=== PATIENT | female | born 1990 | race Caucasian/White ===

== ENCOUNTER 2023-04-17 19:43 | Outpatient (REF) | payer OTHER, SELFPAY ==
[2023-04-23 18:07] LABS: Age Gdln ACOG Testing Note (.); HPV Aptima Negative (Negative); IGP, Aptima HPV, rfx 16/18,45 Note (.)
== END 2023-04-17 19:44 | disposition home or self-care (01) ==
LOC: LAB 19:43
PROVIDERS: Visit Provider Obstetrics & Gynecology
DX: Z01.419 Encounter for gynecological examination (general) (routine) without abnormal findings (principal)
CPT/HCPCS: 87624; G0145

== ENCOUNTER 2024-05-05 19:30 | Outpatient (REF) | payer OTHER, SELFPAY ==
--- OUTSIDE RECORDS SUMMARY | 2024-05-05 19:35 | XMS_ITS | CCD ---
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 Name Role Phone Lindsey Law Primary Care Physician Skylar Mcclain Unavailable Unavailable REQUEST, NONE LISTED Primary Care UnavailSAVANNA Clark Admitting Unavailable SAVANNA SMART Attending Unavailable SAVANNA SMART Consulting Unavailable RENATA, DR HIDALGO Admitting Unavailable RENATA, DR HIDALGO Attending Unavailable REQUEST, NONE LISTED Primary Care Unavailjaja YANEZ, DR HIDALGO Consulting Unavailable Violette Rucker Unavailable ROCKY YANEZ Attending Unavailable ROCKY YANEZ Attending Unavailable KERMIT BECKHAM Attending Unavailable KERMIT BECKHAM Attending Unavailable KERMIT BECKHAM Attending Unavailable Terrell Deshpande Attending Unavaila Marielena Clay Attending Unavailable Marielena Archer Attending Unavailable Lindsey Law MD Primary Care Provider Allergies Allergy Classification Reported Allergen(s) Allergy Type Date of Onset Reaction(s) Facility (7 sources) acetaminophen / propoxyphene; Translations: [acetaminophen-pro poxyphene] Drug Allergy stomach upset [facility] (10 sources) Azithromycin; Translations: [azithromycin] Drug Allergy 04-17-20 23 anaphylaxis [facility] (7 sources) Contrast media; Translations: [red dye] Drug allergy 02-01-20 15 [facility] (7 sources) Oseltamivir; Translations: [oseltamivir] Drug Allergy Swelling (morphologic abnormality), swelling [facility] (4 sources) Contrast media; Translations: [contrast media (iodine-based)] Allergy to substance 01-31-20 15 Unknown [facility] (1 source) acetohydroxamic acid Drug Allergy [facility] Rep[facility] (1 source) Azithromycin Drug Allergy 11-09-19 03 [facility] (1 source) Darvocet-N 100 Drug allergy (disorder) 11-09-19 05 [facility] (1 source) Dye HALF-WAY Red 40 (Allura Red) Drug allergy stomach upset [facility] Other (3 sources) Oseltamivir Drug Allergy 06-09-19 20 Swelling [facility] Healthcare (3 sources) Propoxyphene Drug Allergy 04-17-20 23 [facility] [employer] Work Phone: (3 sources) Red Dye #40 (Allura Red) Propensity to adverse reactions 02-01-20 15 [facility] Healthcare Medications Current Medications Medication Drug Class(es) Dates Sig (Normalized) Sig (Original) [id number] 200 actuat albuterol 0.09 mg/actuat metered dose inhaler (5 sources) beta2-Adrenergic Agonist Start: 10-05-2010 ProAir HFA 90 mcg/inh inhalation aerosol 2 puff(s), Inhalation, as needed, Asthma Start Date: 10/05/10 Status: Ordered take 2 puff(s) by in halation every six hours albuterol HFA 90 mcg/act inhaler Inhale 2 puffs every 6 (six) hours if needed. Active take 2 puff(s) by in halation every six hours as needed Albuterol Sulfate HFA 108 (90 Base) MCG/ACT 2 puffs as needed Inhalation every 6 hrs prn Active Apri oral tablet (2 sources) Start: 02-15-2021 take 1 tablet by mouth once daily Apri oral tablet tab(s), Oral, Daily, Refill(s) 0 Start Date: 02/15/21 Status: Ordered 12 hr buPROPion hydrochloride 150 mg extended release oral tablet (3 sources) Aminoketone Start: 04-14-2023 take 1 tablet by mouth every twelve hours in the morning buPROPion SR (Wellbutrin SR) 150 MG 12 hr tablet Take 150 mg by mouth in the morning and 150 mg before bedtime. 04/14/2023 Active cephalexin 500 mg oral capsule (1 source) Cephalosporin Antibacterial Start: 12-29-2022 take 1 capsule by mouth every eight hours Cephalexin 500 MG 1 capsule Orally every 8 hrs for 7 Dec, Active {21 (Desogestrel 0.15 MG / Ethinyl Estradiol 0.03 MG Oral Tablet) / (Inert Ingredients 1 MG Oral Tablet) } Pack [Apri 28 Day] (4 sources) Progestin, Estrogen Start: 02-15-2021 take 1 tablet by mouth once daily Apri oral tablet tab(s), Oral, Daily, Refill(s) 0 Start Date: 02/15/21 Status: Ordered take 1 tablet by [facility] every twenty-four hours Apri 0.15-30 MG-MCG 1 tablet Orally Once a day Not-Taking Prozac (1 source) Serotonin Reuptake Inhibitor Start: 05-20-2023 Prozac Oral, Daily, Refills(s) 0 Start Date: 05/20/23 Status: Ordered ibuprofen 800 mg oral tablet (9 sources) Nonsteroidal Anti-inflammatory Drug Start: 09-18-2022 take 1 tablet by mouth three times daily as needed ibuprofen 800 MG tablet Take 800 mg by mouth 3 (three) times a day as needed. 09/18/2022 Active Start: 02-21-2018 ibuprofen PRN as needed for pain, Refills(s) 0 Start Date: 02/21/18 Status: Ordered Lamictal (9 sources) Mood Stabilizer, Anti-epileptic Agent Start: 02-15-2021 Lamictal Oral, BID, Refills(s) 0, Psychosis Start Date: 02/15/21 Status: Ordered take 1 tablet by mouth in the mo rning lamoTRIgine (LaMICtal) 100 MG tablet Take 1 tablet by mouth in the morning and 1 tablet before bedtime. Active take 2 tablets by mo [facility] every twenty-four hours LaMICtal 25 MG 2 tablet Orally Once a da y Active linaclotide 0.145 mg oral capsule (9 sources) Guanylate Cyclase-C Agonist Start: 05-20-2023 End: 11-16-2023 take 1 capsule by mouth once daily Linzess 145 mcg oral capsule 145 mcg = 1 cap(s), Oral, Daily, X 90 day(s), # 90 cap(s), Refills(s) 1, Pharmacy: [facility]/pharmacy #[id number], 165, cm, 05/20/23 9:14:00 EST, Height/Length Dosing, 63.3, kg, 05/20/23 9:14:00 EST, Weight Dosing Start Date: 05/20/23 Stop Date: 11/16/23 Status: Ordered Start: 08-27-2022 End: 02-23-2023 take 1 capsule by mouth once daily Linzess 290 mcg oral capsule 290 mcg = 1 cap(s), Oral, Daily, X 90 day(s), # 90 cap(s), Refills(s) 1, Pharmacy: [facility]/pharmacy #[id number], 165, cm, 08/27/22 14:33:00 EDT, Height/Length Dosing, 63.4, kg, 08/27/22 14:33:00 EDT, Weight Dosing Start Date: 08/27/22 Stop Date: 02/23/23 Status: Ordered Start: 08-29-2021 End: 08-25-2022 take 1 capsule by mouth once daily Linzess 145 mcg oral capsule 145 mcg = 1 cap(s), Oral, Daily, X 90 day(s), # 90 cap(s), Refills(s) 1, Pharmacy: [facility]/pharmacy #[id number], 165, cm, 02/26/22 14:06:00 EST, Height/Length Dosing, 61.6, kg, 02/26/22 14:06:00 EST, Weight Dosing Start Date: 02/26/22 Stop Date: 08/25/22 Status: Ordered Start: 02-15-2021 End: 08-05-2021 take 1 capsule by mouth once daily Linzess 145 mcg oral capsule 145 mcg = 1 cap(s), Oral, Daily, X 30 day(s), # 30 cap(s), Refills(s) 0, Pharmacy: [facility]/pharmacy #[id number], 165.1, cm, 05/09/21 10:49:00 EST, Height/Length Dosing, 59.4, kg, 05/09/21 10:49:00 EST, Weight Dosing Start Date: 07/06/21 Stop Date: 08/05/21 Status: Ordered take 1 capsule by [facility] before mealtime linaCLOtide (Linzess) 72 MCG capsule Take 72 mcg by mouth in the morning. Take before meals. Do not crush or chew.. Active MiraLax oral powder for reconstitution (2 sources) Start: 01-01-2021 MiraLax oral p owder for reconstitution 17 gram, Oral, Daily Constipation, 255 gm, Refill(s) 0, dissolve in water before taking, [facility]/pharmacy #[id number], 165.1, cm, 01/01/21 11:05:00 EDT, Height/Length Dosing, 60, kg, 01/01/21 11:05:00 EDT, Weight Dosing Start Date: 01/01/21 Status: Ordered Prilosec (6 sources) Proton Pump Inhibitor Start: 02-21-2018 Prilosec Oral, Daily , Refills(s) 0, Control of stomach acid Start Date: 02/21/18 Status: Ordered take 1 capsule by [facility] every twenty-four hours Omeprazole 40 MG 1 capsule Orally Once a day Active polyethylene glycol 3350 68271 mg powder for oral solution (3 sources) Osmotic Laxative Start: 01-01-2021 MiraLax oral powder for reconstitution 17 gram, Oral, Daily Constipation, 255 gm, Refill(s) 0, dissolve in water before taking, [facility]/pharmacy #[id number], 165.1, cm, 01/01/21 11:05:00 EDT, Height/Length Dosing, 60, kg, 01/01/21 11:05:00 EDT, Weight Dosing Start Date: 01/01/21 Status: Ordered ProAir HFA 90 mcg/inh inhalation aerosol (4 sources) Start: 10-05-2010 ProAir HFA 90 mcg/inh inhalation aerosol 2 puff(s), Inhalation, as needed, Asthma Start Date: 10/05/10 Status: Ordered topiramate 200 mg oral tablet (2 sources) Start: 05-04-2024 take 1 tablet by mouth once daily topiramate (Topamax) 200 MG tablet Take 200 mg by mouth Daily 05/04/2024 Active Tramadol (9 sources) Opioid Agonist Start: 02-21-2018 tramadol Oral, PRN as needed for pain, Refills(s) 0 Start Date: 02/21/18 Status: Ordered take 2 tablets by mo uth three times daily as needed traMADol (Ultram) 50 MG tablet TAKE 2 TABLETS BY MOUTH 3 TIMES A DAY NEEDED Active take 1 tablet by joe th three times daily as needed traMADol HCl 50 MG 1 tablet as needed Orally three times daily Active ziprasidone 40 mg oral capsule (9 sources) Atypical Antipsychotic Start: 01-13-2023 take 1 capsule by mouth in the morning ziprasidone (Geodon) 40 MG capsule Take 40 mg by mouth in the morning and 40 mg before bedtime. 01/13/2023 Active Start: 02-15-2021 Geodon Refills (s) 0, Psychosis Start Date: 02/15/21 Status: Ordered Geodon Active Zofran ODT 4 mg Tab-Dis (5 sources) Start: 02-21-2018 take 1 tablet by mouth every six hours Zofran ODT 4 mg Tab-Dis 4 mg = 1 tab(s), Oral, q6hr, # 10 tab(s), Refills(s) 0 Start Date: 02/21/18 Status: Ordered Completed/Discontinued Medications Medication Drug Class(es) Dates Sig (Normalized) Sig (Original) SZSTANDARD1-Topical Cream Baclofen 2%, Cyclobenzaprine HCL 2%, Diclofenac Na 3%, Gabapentin 6%, Lidocaine HCL 2% Cream (1 source) Start: 08-11-2018 SZSTANDARD1-Topical Cream Baclofen 2%, Cyclobenzaprine HCL 2%, Diclofenac Na 3%, Gabapentin 6%, Lidocaine HCL 2% Cream NEEDED TOPICALLY APPLY 1-2 GRAMS FOR 2-3 MINUTES EVERY 6-8 HOURS for 30 days Jul, Not-Taking Problems Active Problems Problem Classification Problem Date Documented Da te Episodic/Chronic Asthma (6 sources) Asthma; Translations: [Unspecified asthma, uncomplicated] Onset: 2 07-03-2013 Chronic Endometriosis (5 sources) Endometriosis (clinical) 08-31-2017 Chronic Gastrointestinal hemorrhage (1 source) Gastrointestinal hemorrhage 03-11-2023 Episodic Headache; including migraine (4 sources) Migraine, unspecified, not intractable, without status migrainosus; Translations: [MIGRAINE UNS NOT INTRACT W/O SM] Onset: 2 Chronic Hemorrhoids (7 sources) Hemorrhoids; Translations: [Unspecified hemorrhoids] Onset: 2 04-26-2021 Episodic Immunizations and screening for infectious disease (1 source) Encounter for screening for human papillomavirus (HPV); Translations: [ENC SCREENING HUMAN PAPILLOMAVIRUS] Onset: 2 Episodic Mood disorders (11 sources) Bipolar II disorder; Translations: [Depressive disorder] Onset: 2 07-03-2013 Chronic Other acquired deformities (1 source) Acquired spondylolisthesis; Translations: [Spondylolisthesis, site unspecified] Episodic Other aftercare (1 source) Other termite renewal inspector (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; Translations: [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 CURRENT DRUG THERAPY] Onset: 2 Episodic Other female genital disorders (5 sources) Dysplasia of cervix 07-26-2015 Episodic Other gastrointestinal disorders (8 sources) Chronic idiopathic constipation; Translations: [Chronic idiopathic constipation] Onset: 2 Chronic Other gastrointestinal disorders (1 source) Chronic constipation 04-26-2021 Episodic Other gastrointestinal disorders (1 source) Swollen abdomen; Translations: [Abdominal distension (gaseous)] Onset: 3 Episodic Other gastrointestinal disorders (2 sources) Abdominal bloating 08-27-2022 Episodic Other nervous system disorders (1 source) Sciatic nerve lesion; Translations: [Lesion of sciatic nerve, right lower limb] Chronic Other nervous system disorders (1 source) Chronic pain; Translations: [Other chronic pain] Chronic Other nervous system disorders (1 source) Mononeuropathy of lower limb; Translations: [Unspecified mononeuropathy of right lower limb] Chronic Other non-traumatic joint disorders (1 source) Arthropathy of lumbar facet joint; Translations: [Other specific arthropathies, not elsewhere classified, other specified site] Chronic Other non-traumatic joint disorders (1 source) Hip pain; Translations: [Pain in unspecified hip] Episodic Other screening for suspected conditions (not mental disorders or infectious disease) (4 sources) Encounter for screening for malignant neoplasm of cervix; Translations: [ENC SCREENING MALIG NEOPLASM CERV] Onset: 2 Episodic Screening and history of mental health and substance abuse codes (1 source) Personal history of nicotine dependence; Translations: [PERSONAL HISTORY OF NICOTINE DEPEND] Onset: 2 Episodic Skin and subcutaneous tissue infections (1 source) Cellulitis of left toe Episodic Spondylosis; intervertebral disc disorders; other back problems (8 sources) Degeneration of intervertebral disc; Translations: [Solitary sacroiliitis] 10-08-2013 Chronic Spondylosis; intervertebral disc disorders; other back problems (3 sources) Neck pain; Translations: [Cervicalgia] Episodic Substance-related disorders (5 sources) Smoker 05-06-2016 Chronic Comment on above: Added secondary to d ocumentation in Social History. Past or Other Problems Problem Classification Problem Date Documented Da te Episodic/Chronic Headache; including migraine (5 sources) Headache Onset: 05-08-2013 07-03-2013 Episodic Results Test Name Value Interpretation Reference Range Facility Ambulatory Visit Summaryon 0 05-20-2023 Ambulatory Visit Summary ALISSON SALEHNORA Tilley :1990 Visit Date:05/20/2023 Ambulatory Visit Instructions Your Diagnosis Chronic idiopathic constipation Your Care Team Attending Physician - Marielena Archer CNP Primary Care Physician - Lindsey Law MD This Is Your Medications List linaclotide (Linzess 145 mcg oral capsule) Contact prescribing physician if questions or concerns albuterol (ProAir HFA 90 mcg/inh inhalation aerosol) desogestrel-ethinyl estradiol (Apri oral tablet) fluoxetine (Prozac) ibuprofen lamotrigine (Lamictal) omeprazole (Prilosec) ondansetron (Zofran ODT 4 mg Tab-Dis) polyethylene glycol 3350 (MiraLax oral powder for reconstitution) tramadol ziprasidone (Geodon) Procedures Performed Abdominal hysterectomy (04/10/2021), Colonoscopy (03/15/2021), back injections, hernia, LEAP, None, Tubal ligation. Discharge Vitals Temperature (Temporal Artery) 36.3 ?C Heart Rate (Peripheral) 87 Respiratory Rate 16 Blood Pressure 128/88 Height 65 in Height 165 cm Weight 139.26 lb Weight 63.3 kg BMI 23.25 What to do next Scheduled Follow-Up Appointments Saturday 9:00 AM EST With: Marielena Archer CNP Where: [facility] Normal [facility] Gastroenterology Office/Clin ic Noteon 05-20-2023 Gastroenterology Office/Clinic Note Chief Complaint Check up HPI Staff This is a 32 year old female who presents today for a follow-up from 03/11/23 office visit. Constipation and bloating have improved. History of Present Illness Patient is a 32-year-old female who presents for follow-up. Patient has history of chronic constipation that is currently being treated with Linzess 145 mcg daily, patient also previously educated regarding use of MiraLAX and eating kiwi fruit. Patient was previously evaluated 02/2023 and had previous colonoscopy 02/2021 that revealed hemorrhoids?is due for repeat colonoscopy at age 46. Patient reported during visit with me that after being on Trulance for 2 weeks, stool was hard and larger in size. She reported Linzess daily was previously working better for her and wanted to resume Linzess. She reported gas/bloating with constipation that improved after having a bowel movement. During today's visit, patient reports with Linzess 145mcg. daily, miralax every other day, and fiber supplementation daily. Is having 4 formed BMs a week. Has occasional gas. Has occasional nausea that improves after belching at times. Denies black/bloody stools, vomiting, fevers/chills, and denies having any other GI complaints. Review of Systems PHQ Score Initial Depression Screen Score: 0 SCORE ROS - Provider Constitutional: no fever, no chills. Skin: no Jaundice. ENMT: Denies dysphagia and heartburn. Respiratory: no shortness of breath. Cardiovascular: no chest pain. Gastrointestinal: no nausea, no vomiting, no diarrhea, no GI bleeding. Physical Exam Vitals & Measurements T: 36.3 ?C(Temporal Artery) HR: 87(Peripheral) RR: 16 BP: 128/88 HT: 65 in HT: 165 cm WT: 63.3 kg WT: 139.26 lb BMI: 23.25 General: Well developed, well nourished, in no acute distress Head: Normocephalic/atrauma tic Lungs: Normal respiratory effort and clear to auscultation Cardio: Regular rate and rhythm, normal S1 and S2, no murmur, no rub Abdomen: Soft, non-distended, non-tender. Normoactive bowel sounds present in all 4 abdominal quadrants, bilaterally. Mental Status: Alert and oriented x3. Normal mood and affect Assessment/Plan 1. Chronic idiopathic constipation (K59.04: Chronic idiopathic constipation) Improved. Continue Linzess 145mcg. oral daily. Continue miralax daily PRN for constipation. Continue fiber supplementation daily. Educated regarding use of probiotics daily. Ordered: linaclotide, 145 mcg = 1 cap(s), Oral, Daily, X 90 day(s), # 90 cap(s), Refills(s) 1, Pharmacy: [facility]/pharmacy #[id number], 165, cm, 05/20/23 9:14:00 EST, Height/Length Dosing, 63.3, kg, 05/20/23 9:14:00 EST, Weight Dosing Follow-up With When Contact Information Marielena Archer CNP Within 1 year Additional Instructions: Or sooner if needed. Patient Education Chronic Constipation Problem List/Past Medical History Ongoing Asthma Bloating Chronic idiopathic constipation Depression Headache Hemorrhoids Smoker Historical Bipolar II disorder BRBPR (bright red blood per rectum) degenerative disc disease Endometriosis Procedure/Surgical History Abdominal hysterectomy (04/10/2021), Colonoscopy (03/15/2021), back injections, hernia, LEAP, None, Tubal ligation. Medications Apri oral tablet, Oral, Daily, Not taking Geodon ibuprofen, PRN Lamictal, Oral, BID Linzess 145 mcg oral capsule, 145 mcg= 1 cap(s), Oral, Daily, 1 refills MiraLax oral powder for reconstitution, 17 gm, Oral, Daily, PRN Prilosec, Oral, Daily ProAir HFA 90 mcg/inh inhalation aerosol, 2 puff(s), Inhalation, QID Prozac, Oral, Daily tramadol, Oral, PRN Zofran ODT 4 mg Tab-Dis, 4 mg= 1 tab(s), Oral, q6hr, Not taking Allergies Tamiflu (Swelling) Darvocet-N 100 Red Dye Zithromax contrast media (iodine-based) (Unknown) Social History Alcohol - Low Risk, 05/09/2021 Current, 08/31/2017 Substance Abuse - Denies Substance Abuse, 09/17/2010 Tobacco - High Risk, 04/19/2011 Former smoker, quit more than 30 days ago Tobacco Use:. Never Smokeless Tobacco Use:. Cigarettes, 05/20/2023 Family History Diabetes: Mother. Pancreatic cancer: Grandparent. Immunizations Vaccine Date Status Comments influenza virus vaccine, inactivated - Not Given Patient Refuses influenza virus vaccine, inactivated - Not Given Patient Refuses influenza virus vaccine, inactivated - Not Given Patient Refuses influenza virus vaccine, inactivated - Not Given Patient Refuses influenza virus vaccine, inactivated - Not Given Patient Refuses Normal [facility] Comment on above: Result Comment: Faviola choually Signed By: Marielena Archer CNP\.morris\Date and Time Signed: 05/20/23 09:24 EST Patient Educationon 05-20-19 Patient Education Gastroenterology Chronic Constipation Chronic constipation is a condition in which a person has three or fewer bowel movements a week, for 3 months or longer. This condition is especially common in older adults. What are the causes? Causes of chronic constipation may include: ? Not drinking enough fluid, eating enough food or fiber, or getting enough physical activity. ? . ? A tear in the anus (anal fissure). ? Blockage in the bowel (bowel obstruction). ? Narrowing of the bowel (bowel stricture). ? Having a long-term medical condition, such as: ? Diabetes, hypothyroidism, or iron-deficiency anemia. ? Stroke or spinal cord injury. ? Multiple sclerosis or Parkinson's disease. ? Colon cancer. ? Dementia. ? Inflammatory bowel disease (IBD), outward collapse of the rectum (rectal prolapse), or hemorrhoids. ? Taking certain medicines, including: ? Narcotics. These are a certain type of prescription pain medicine. ? Antacids or iron supplements. ? Water pills (diuretics). ? Certain blood pressure medicines. ? Anti-seizure medicines. ? Antidepressants. ? Medicines for Parkinson's disease. Other causes of this condition may include: ? Stress. ? Problems in the nerves and muscles that control the movement of stool. ? Weak or impaired pelvic floor muscles. What increases the risk? You may be at higher risk for chronic constipation if: ? You are older than age 70. ? You are female. ? You live in a long-term care facility. ? You have a long-term disease. ? You have a mental health disorder or eating disorder. What are the signs or symptoms? The main symptom of chronic constipation is having three or fewer bowel movements a week for several weeks. Other signs and symptoms may vary from person to person. These include: ? Pushing hard (straining) to pass stool, or having hard or lumpy stools. ? Painful bowel movements. ? Having lower abdominal discomfort, such as cramps or bloating. ? Being unable to have a bowel movement when you feel the urge, or feeling like you still need to pass stool after a bowel movement. ? Feeling that you have something in your rectum that is blocking or preventing bowel movements. ? Seeing blood on the toilet paper or in your stool. ? Worsening confusion (in older adults). How is this diagnosed? This condition may be diagnosed based on: ? Your symptoms and medical history. You will be asked about your symptoms, lifestyle, diet, and any medicines that you are taking. ? A physical exam. ? Your abdomen will be examined. ? A digital rectal exam may be done. For this exam, a health care provider places a lubricated, gloved finger into the rectum. ? Tests to check for any underlying causes of your constipation. These may be ordered if you have bleeding in your rectum, weight loss, or a family history of colon cancer. In these cases, you may have: ? Imaging studies of the colon. These may include X-ray, ultrasound, or a CT scan. ? Blood tests. ? A procedure to examine the inside of your colon (colonoscopy). ? More specialized tests to check: ? Whether your anal sphincter works well. This is a ring-shaped muscle that controls the closing of the anus. ? How well food moves through your colon. ? Tests to measure the nerve signal in your pelvic floor muscles (electromyography). How is this treated? Treatment for chronic constipation depends on the cause. Most often, treatment starts with: ? Being more active and getting regular exercise. ? Drinking more fluids. ? Adding fiber to your diet. Sources of fiber include fruits, vegetables, whole grains, and fiber supplements. ? Using medicines such as stool softeners or medicines that increase contractions in your digestive system (pro-motility agents). ? Training your pelvic muscles with biofeedback. ? Surgery, if there is obstruction. Treatment may also include: ? Stopping or changing some medicines if they cause constipation. ? Using a fiber supplement (bulk laxative) or stool softener. ? Using a prescription laxative. This works by absorbing water into your colon (osmotic laxative). You may also need to see a specialist who treats conditions of the digestive system (pulper tender). Follow these instructions at home: Medicines ? Take synd-lki-dbhkmio and prescription medicines only as told by your health care provider. ? If you are taking a laxative, take it as told by your health care provider. Eating and drinking ? Eat a balanced diet that includes enough fiber. Ask your health care provider to recommend a diet that is right for you. ? Drink clear fluids, especially water. Avoid drinking alcohol, caffeine, and soda. These can make constipation worse. ? Drink enough fluid to keep your urine pale yellow. General instructions ? Get some physical activity every day. Ask your h (more content not included)... Normal [facility] Ambulatory Visit Summaryon 1 05-11-2022 Ambulatory Visit Summary LINDSEY SALEH Jarek :1990 Visit Date:03/11/2023 Ambulatory Visit Instructions Your Diagnosis Chronic idiopathic constipation Bloating Your Care Team Attending Physician - Marielena Archer CNP Primary Care Physician - Lindsey Law MD This Is Your Medications List linaclotide (Linzess 145 mcg oral capsule) Contact prescribing physician if questions or concerns albuterol (ProAir HFA 90 mcg/inh inhalation aerosol) desogestrel-ethinyl estradiol (Apri oral tablet) ibuprofen lamotrigine (Lamictal) omeprazole (Prilosec) ondansetron (Zofran ODT 4 mg Tab-Dis) polyethylene glycol 3350 (MiraLax oral powder for reconstitution) tramadol ziprasidone (Geodon) [Image Removed: STOP]Stop taking these medications plecanatide (Trulance 3 mg oral tablet) Procedures Performed Abdominal hysterectomy (04/10/2021), Colonoscopy (03/15/2021), back injections, hernia, LEAP, None, Tubal ligation. Discharge Vitals Temperature (Temporal Artery) 36.3 ?C Heart Rate (Peripheral) 72 Blood Pressure 134/90 Height 65 in Height 165 cm Weight 141.68 lb Weight 64.4 kg BMI 23.65 What to do next Scheduled Follow-Up Appointments Saturday 9:00 AM EST With: Marielena Archer CNP Where: [facility] Normal [facility] Ambulatory Visit Summary LINDSEY SALEH :1990 Visit Date:03/11/2023 Ambulatory Visit Instructions Your Diagnosis Chronic idiopathic constipation Bloating Your Care Team Attending Physician - Marielena Archer CNP Primary Care Physician - Lindsey Law MD This Is Your Medications List linaclotide (Linzess 145 mcg oral capsule) Contact prescribing physician if questions or concerns albuterol (ProAir HFA 90 mcg/inh inhalation aerosol) desogestrel-ethinyl estradiol (Apri oral tablet) ibuprofen lamotrigine (Lamictal) omeprazole (Prilosec) ondansetron (Zofran ODT 4 mg Tab-Dis) polyethylene glycol 3350 (MiraLax oral powder for reconstitution) tramadol ziprasidone (Geodon) [Image Removed: STOP]Stop taking these medications plecanatide (Trulance 3 mg oral tablet) Procedures Performed Abdominal hysterectomy (04/10/2021), Colonoscopy (03/15/2021), back injections, hernia, LEAP, None, Tubal ligation. Discharge Vitals Temperature (Temporal Artery) 36.3 ?C Heart Rate (Peripheral) 72 Blood Pressure 134/90 Height 65 in Height 165 cm Weight 141.68 lb Weight 64.4 kg BMI 23.65 What to do next You Need to Schedule the Following Appointments Follow Up with Marielena Archer CNP When: Within 3 months Where: Medications What How Much When Why Instructions New linaclotide (Linzess 145 mcg oral capsule) 1 Capsules By Mouth Every day Chronic idiopathic constipation Duration: 90 Days Pickup at [facility]/pharmacy #[id number] Unchanged albuterol (ProAir HFA 90 mcg/ inh inhalation aerosol) 2 Puffs Inhalation as needed Contact prescribing physician if questions or concerns Unchanged desogestrel-ethinyl estradiol (Apri oral tablet) By Mouth Every day Contact prescribing physician if questions or concerns Unchanged ibuprofen As needed for as needed for pain Contact prescribing physician if questions or concerns Unchanged lamotrigine (Lamictal) By Mouth 2 times a day Contact prescribing physician if questions or concerns Unchanged omeprazole (Prilosec) By Mouth Every day Contact prescribing physician if questions or concerns Unchanged ondansetron (Zofran ODT 4 mg Tab-Dis) 1 Tablets By Mouth Every 6 hours Contact prescribing physician if questions or concerns Unchanged polyethylene glycol 3350 (MiraLax oral powder for reconstitution) 17 Gram By Mouth Every day as needed for Constipation dissolve in water before taking Contact prescribing physician if questions or concerns Unchanged tramadol By Mouth As needed for as needed for pain Contact prescribing physician if questions or concerns Unchanged ziprasidone (Geodon) Contact prescribing physician if questions or concerns Pharmacy Information [facility]/pharmacy #[id number]: [address], [place] [phone] What How Much When Why Comments Stop Taking plecanatide (Trulance 3 mg oral tablet) 1 Tablets By Mouth Every day Chronic idiopathic constipation Duration: 90 Days Medications and Immunizations Administered Not Given influenza virus vaccine, inactivated, Patient Refuses Allergies Tamiflu (Swelling) Darvocet-N 100 Red Dye Zithromax contrast media (iodine-based) (Unknown) Problems Ongoing - Any problem that you are currently receiving treatment for. Asthma Bloating Chronic idiopathic constipation Depression Headache Hemorrhoids Smoker Historical - Any problem that you are no longer receiving treatment for. Bipolar II disorder BRBPR (bright red blood per rectum) degenerative disc disease Endometriosis Patient Survey You may receive a survey via text or e-mail asking about your office visit. Please share your experience with us by completing your survey. We appreciate your feedback and thank you for choosing us for your care. Education Materials Chronic Constipation Chronic constipation is a condition in which a person has three or fewer bowel movements a week, for 3 months or longer. This condition is especially common in older adults. What are the causes? Causes of chronic constipation may include: ? Not drinking enough fluid, eating enough food or fiber, or getting enough physical activity. ? . ? A tear in the anus (anal fissure). ? Blockage in the bowel (bowel obstruction). ? Narrowing of the bowel (bowel stricture). ? Having a long-term medical condition, such as: ? Diabetes, hypothyroidism, or iron-deficiency anemia. ? Stroke or spinal cord injury. ? Multiple sclerosis or Parkinson's disease. ? Colon cancer. ? Dementia. ? Inflammatory bowel disease (IBD), outward collapse of the rectum (rectal prolapse), or hemorrhoids. ? Taking certain medicines, including: ? Narcotics. These are a certain type of prescription pain medicine. ? Antacids or iron supplements. ? Water pills (diuretics). ? Certain blood pressure medicines. ? Anti-seizure medicines. ? Antidepressants. ? Medicines (more content not included)... Normal [facility] Gastroenterology Office/Clin ic Noteon 03-11-2023 Gastroenterology Office/Clinic Note Chief Complaint Checkup HPI Staff This is a 32 year old female who presents today for a 2 month follow-up. History of Present Illness Patient is a 32-year-old female who presents for follow-up. Patient was previously evaluated 01/14/2023 and has history of chronic constipation. Patient had previous x-ray of abdomen in 02/2021 that revealed abdominal gas pattern that was unremarkable and fecal material scattered in colon that was not excessive in amount. Previous colonoscopy 02/2021 revealed hemorrhoids and is due for repeat at age 46. Patient reported during most recent visit with me that her insurance would not approve Linzess 290 mcg daily. Patient reported she was having 1 bowel movement daily. Was taking Benefiber 2 tablespoons daily, MiraLAX 1 capful daily. She reported her stools were hard at times in consistency and was having hemorrhoids and bright red blood per rectum with wiping on toilet paper with hard stools. She also reported bloating with constipation. Patient was started on Trulance instead of Linzess. Patient was educated regarding use of MiraLAX and to ensure she was eating plenty of fruits and vegetables. Patient was also educated to continue fiber supplementation daily. During today's visit, patient reports she started Trulance and the first few weeks she was having diarrhea. She explains after being trulance for 2 weeks, stool was hard and larger in size with Trulance. She reports she stopped trulance 5 days ago and is having improvement in bowel habits with trulance. She explains Linzess 145mcg. oral daily that she was previously on was working better for her and would like to resume Linzess. Reports having bloating/gas with constipation that improves after having a BM. Is currently having 1 formed BM that are hard in consistency every 3-4 days. Is taking miralax as needed that helps her constipation. She reports she does not drink much water at times. Denies black/bloody stools, nausea/vomiting, fevers/chills, and denies having any other GI complaints. Review of Systems PHQ Score Initial Depression Screen Score: 0 SCORE ROS - Provider Constitutional: no fever, no chills. Skin: no Jaundice. ENMT: Denies dysphagia and heartburn. Respiratory: no shortness of breath. Cardiovascular: no chest pain. Gastrointestinal: no nausea, no vomiting, no diarrhea, no GI bleeding. Physical Exam Vitals & Measurements T: 36.3 ?C(Temporal Artery) HR: 72(Peripheral) BP: 134/90 HT: 65 in HT: 165 cm WT: 64.4 kg WT: 141.68 lb BMI: 23.65 General: Well developed, well nourished, in no acute distress Head: Normocephalic/atrauma tic Lungs: Normal respiratory effort and clear to auscultation Cardio: Regular rate and rhythm, normal S1 and S2, no murmur, no rub Abdomen: Soft, non-distended, non-tender. Normoactive bowel sounds present in all 4 abdominal quadrants, bilaterally. Mental Status: Alert and oriented x3. Normal mood and affect Assessment/Plan 1. Chronic idiopathic constipation (K59.04: Chronic idiopathic constipation) Hx. chronic constipation. Hard stools with trulance. Is interested in going back on Linzess 145mcg. oral daily. Previous x-ray of abdomen in 02/2021 that revealed abdominal gas pattern that was unremarkable and fecal material scattered in colon that was not excessive in amount. Previous colonoscopy 02/2021 revealed hemorrhoids and is due for repeat at age 46. Discontinued trulance. Ordered Linzess 145mcg. oral daily. Patient was educated regarding use of MiraLAX and to ensure she was eating plenty of fruits and vegetables. Patient was also educated to continue fiber supplementation daily. Educated to ensure she is drinking 3-4 liters of water daily. Ordered: linaclotide, 145 mcg = 1 cap(s), Oral, Daily, X 90 day(s), # 90 cap(s), Refills(s) 0, Pharmacy: [facility]/pharmacy #[id number], 165, cm, 03/11/23 8:55:00 EST, Height/Length Dosing, 64.4, kg, 03/11/23 8:55:00 EST, Weight Dosing 2. Bloating (R14.0: Abdominal distension (gaseous)) Is having bloating/gas with constipation that improves after having a BM. Hard stools with trulance. Is interested in going back on Linzess 145mcg. oral daily. Previous x-ray of abdomen in 02/2021 that revealed abdominal gas pattern that was unremarkable and fecal material scattered in colon that was not excessive in amount. Previous colonoscopy 02/2021 revealed hemorrhoids and is due for repeat at age 46. Discontinued trulance. Ordered Linzess 145mcg. oral daily. Patient was educated regarding use of MiraLAX and to ensure she was eating plenty of fruits and vegetables. Patient was also educated to continue fiber supplementation daily. Educated to ensure she is drinking 3-4 liters of water daily. Follow-up With When Contact Information Marielena Archer CNP Within 3 months Additional Instructions: Patient Education Chronic Constipation Problem List/Past Medical History Ongoing Asthma Bloating Chronic idiopathic constipation Depression Headache Hemorrhoi (more content not included)... Normal [facility] Comment on above: Result Comment: Elec tronically Signed By: Marielena Archer CNP\.br\Date and Time Signed: 03/11/23 09:07 EST Patient Educationon 03-11-20 Patient Education Gastroenterology Chronic Constipation Chronic constipation is a condition in which a person has three or fewer bowel movements a week, for 3 months or longer. This condition is especially common in older adults. What are the causes? Causes of chronic constipation may include: ? Not drinking enough fluid, eating enough food or fiber, or getting enough physical activity. ? . ? A tear in the anus (anal fissure). ? Blockage in the bowel (bowel obstruction). ? Narrowing of the bowel (bowel stricture). ? Having a long-term medical condition, such as: ? Diabetes, hypothyroidism, or iron-deficiency anemia. ? Stroke or spinal cord injury. ? Multiple sclerosis or Parkinson's disease. ? Colon cancer. ? Dementia. ? Inflammatory bowel disease (IBD), outward collapse of the rectum (rectal prolapse), or hemorrhoids. ? Taking certain medicines, including: ? Narcotics. These are a certain type of prescription pain medicine. ? Antacids or iron supplements. ? Water pills (diuretics). ? Certain blood pressure medicines. ? Anti-seizure medicines. ? Antidepressants. ? Medicines for Parkinson's disease. Other causes of this condition may include: ? Stress. ? Problems in the nerves and muscles that control the movement of stool. ? Weak or impaired pelvic floor muscles. What increases the risk? You may be at higher risk for chronic constipation if: ? You are older than age 70. ? You are female. ? You live in a long-term care facility. ? You have a long-term disease. ? You have a mental health disorder or eating disorder. What are the signs or symptoms? The main symptom of chronic constipation is having three or fewer bowel movements a week for several weeks. Other signs and symptoms may vary from person to person. These include: ? Pushing hard (straining) to pass stool, or having hard or lumpy stools. ? Painful bowel movements. ? Having lower abdominal discomfort, such as cramps or bloating. ? Being unable to have a bowel movement when you feel the urge, or feeling like you still need to pass stool after a bowel movement. ? Feeling that you have something in your rectum that is blocking or preventing bowel movements. ? Seeing blood on the toilet paper or in your stool. ? Worsening confusion (in older adults). How is this diagnosed? This condition may be diagnosed based on: ? Your symptoms and medical history. You will be asked about your symptoms, lifestyle, diet, and any medicines that you are taking. ? A physical exam. ? Your abdomen will be examined. ? A digital rectal exam may be done. For this exam, a health care provider places a lubricated, gloved finger into the rectum. ? Tests to check for any underlying causes of your constipation. These may be ordered if you have bleeding in your rectum, weight loss, or a family history of colon cancer. In these cases, you may have: ? Imaging studies of the colon. These may include X-ray, ultrasound, or a CT scan. ? Blood tests. ? A procedure to examine the inside of your colon (colonoscopy). ? More specialized tests to check: ? Whether your anal sphincter works well. This is a ring-shaped muscle that controls the closing of the anus. ? How well food moves through your colon. ? Tests to measure the nerve signal in your pelvic floor muscles (electromyography). How is this treated? Treatment for chronic constipation depends on the cause. Most often, treatment starts with: ? Being more active and getting regular exercise. ? Drinking more fluids. ? Adding fiber to your diet. Sources of fiber include fruits, vegetables, whole grains, and fiber supplements. ? Using medicines such as stool softeners or medicines that increase contractions in your digestive system (pro-motility agents). ? Training your pelvic muscles with biofeedback. ? Surgery, if there is obstruction. Treatment may also include: ? Stopping or changing some medicines if they cause constipation. ? Using a fiber supplement (bulk laxative) or stool softener. ? Using a prescription laxative. This works by absorbing water into your colon (osmotic laxative). You may also need to see a specialist who treats conditions of the digestive system (pulper tender). Follow these instructions at home: Medicines ? Take [id number] and prescription medicines only as told by your health care provider. ? If you are taking a laxative, take it as told by your health care provider. Eating and drinking ? Eat a balanced diet that includes enough fiber. Ask your health care provider to recommend a diet that is right for you. ? Drink clear fluids, especially water. Avoid drinking alcohol, caffeine, and soda. These can make constipation worse. ? Drink enough fluid to keep your urine pale yellow. General instructions ? Get some physical activity every day. Ask your h (more content not included)... Normal [facility] CBCon 06-09-2019 ABSOLUTE BAS 0.1 10*3/uL Normal 0.0-0.2 [facility]3] Comment on above: Performed By: #### A CBC, CMPF #### Testing performed at [address] [address] ABSOLUTE EOS 0.10 10*3/uL Normal 0.0-0.7 [facility] Comment on above: Performed By: #### A CBC, CMPF #### Testing performed at [address] [address] ABSOLUTE NEUTROPHIL COUNT 3.3 10*3/uL Normal 1.4-6.5 [facility] Comment on above: Performed By: #### A CBC, CMPF #### Testing performed at [address] [address] Basophils/100 WBC (Bld) 0.8 % Normal 0.0-2.0 [facility] Comment on above: Performed By: #### A CBC, CMPF #### Testing performed at [address] [address] DTYPE AUTO DIFF Normal [facility] Comment on above: Performed By: #### A CBC, CMPF #### Testing performed at [address] [place] [address] Eosinophils/100 WBC (Bld) 1.4 % Normal 0.0-11.0 [facility] Comment on above: Performed By: #### A CBC, CMPF #### Testing performed at [address] [address] Lymphocytes (Bld) [#/Vol] 2.40 10*3/uL Normal 1.2-3.4 [facility] Comment on above: Performed By: #### A CBC, CMPF #### Testing performed at [address] [address] Lymphocytes/100 WBC (Bld) 38.6 % Normal 20.0-55.0 [facility] Comment on above: Performed By: #### A CBC, CMPF #### Testing performed at [address] [address] Monocytes (Bld) [#/Vol] 0.4 10*3/uL Normal 0.0-0.7 [facility] Comment on above: Performed By: #### A CBC, CMPF #### Testing performed at [address] [address] Monocytes/100 WBC (Bld) 7.1 % Normal 0.0-10.0 [facility] Comment on above: Performed By: #### A CBC, CMPF #### Testing performed at [address] [address] Neutrophils/100 WBC (Bld) 52.1 % Normal 37.0-75.0 [facility] Comment on above: Performed By: #### A CBC, CMPF #### Testing performed at [address] [address] Erythrocyte distribution width (RBC) [Ratio] 13.5 % Normal 11.5-14.5 [facility] Comment on above: Performed By: #### A CBC, CMPF #### Testing performed at [address] [place] [address] Hematocrit (Bld) [Volume fraction] 38.4 % Normal 36.0-48.0 [facility] Comment on above: Performed By: #### A CBC, CMPF #### Testing performed at [address] [place] [address] Hemoglobin (Bld) [Mass/Vol] 12.9 g/dL Normal 12.0-16.0 [facility] Comment on above: Performed By: #### A CBC, CMPF #### Testing performed at [address] [place] [address] MCH (RBC) [Entitic mass] 29.4 pg Normal 26.0-35.0 [facility] Comment on above: Performed By: #### A CBC, CMPF #### Testing performed at [address] [place] [address] MCHC (RBC) [Mass/Vol] 33.6 g/dL Normal 27.0-37.0 [facility] Comment on above: Performed By: #### A CBC, CMPF #### Testing performed at [address] [address] MCV (RBC) [Entitic vol] 87.4 fL Normal 80.0-100.0 [facility] Comment on above: Performed By: #### A CBC, CMPF #### Testing performed at [address] [place] [address] Platelet mean volume (Bld) [Entitic vol] 9.2 fL Normal 7.4-11.0 [facility] Comment on above: Performed By: #### A CBC, CMPF #### Testing performed at [address] [address] Platelets (Bld) [#/Vol] 281 10*3/uL Normal 130.0-400.0 [facility] Comment on above: Performed By: #### A CBC, CMPF #### Testing performed at [address] [place] [address] RBC (Bld) [#/Vol] 4.39 10*6/uL Normal 4.0-5.4 [facility] Comment on above: Performed By: #### A CBC, CMPF #### Testing performed at [address] [place] [address] WBC (Bld) [#/Vol] 6.3 10*3/uL Normal 3.6-11.0 [facility] Comment on above: Performed By: #### A CBC, CMPF #### Testing performed at [address] [address] CMP FASTINGon 06-09-2019 A:G RATIO 1.3 RATIO Normal 1.3-2.2 [facility] Comment on above: Performed By: #### A CBC, CMPF #### Testing performed at [address] [address] ALT [Catalytic activity/Vol] 12 U/L Low 14-54 [facility] Comment on above: Result Comment: LAMONT ECTED ON 06/09 AT 1533: PREVIOUSLY REPORTED <5 Performed By: #### A CBC, CMPF #### Testing performed at [address] [address] EST. GFR, >60 Normal [facility] Comment on above: Performed By: #### A CBC, CMPF #### Testing performed at [address] [address] EST. GFR,Non >60 Normal [facility] Comment on above: Performed By: #### A CBC, CMPF #### Testing performed at [address] [address] GFR/1.73 sq M predicted among non-blacks MDRD (S/P/Bld) [Vol rate/Area] Average GFR for 20-29 years old = 116. Normal [facility] Comment on above: Result Comment: Asp Developer milena Kidney disease, GFR = <60. Kidney failure, GFR = <15. The GFR estimate is not adjusted for extreme body surface area or acute process, nor has it been validated for women or ethnic groups other than and . Performed By: #### A CBC, CMPF #### Testing performed at [address] [address] Albumin [Mass/Vol] 4.1 G/dl Normal 3.5-5.0 [facility] Comment on above: Performed By: #### A CBC, CMPF #### Testing performed at [address] [address] ALP [Catalytic activity/Vol] 47 U/L Normal 38-126 [facility] Comment on above: Performed By: #### A CBC, CMPF #### Testing performed at [address] [place] [address] AST [Catalytic activity/Vol] 14 U/L Low 15-41 [facility] Comment on above: Performed By: #### A CBC, CMPF #### Testing performed at [address] [place] [address] Bilirubin [Mass/Vol] 0.5 mg/dL Normal 0.2-1.2 [facility] Comment on above: Performed By: #### A CBC, CMPF #### Testing performed at [address] [place] [address] Creatinine [Mass/Vol] 0.52 mg/dL Normal 0.52-1.04 [facility] Comment on above: Performed By: #### A CBC, CMPF #### Testing performed at [address] [place] [address] Protein [Mass/Vol] 7.2 g/dL Normal 6.3-8.2 [facility] Comment on above: Performed By: #### A CBC, CMPF #### Testing performed at [address] [place] [address] Urea nitrogen [Mass/Vol] 11 mg/dL Normal 7-20 [facility] Comment on above: Performed By: #### A CBC, CMPF #### Testing performed at [address] [address] Calcium [Mass/Vol] 9.6 mg/dL Normal 8.4-10.2 [facility] Comment on above: Performed By: #### A CBC, CMPF #### Testing performed at [address] [address] Chloride [Moles/Vol] 104 mmol/L Normal 98-107 [facility] Comment on above: Performed By: #### A CBC, CMPF #### Testing performed at [address] [place] [address] CO2 [Moles/Vol] 24 mmol/L Normal 22-30 [facility] Comment on above: Performed By: #### A CBC, CMPF #### Testing performed at [address] [place] [address] Glucose [Mass/Vol] 84 mg/dL Normal 70-100 [facility] Comment on above: Result Comment: NORMAL <100 mg/dL PREDIABETES 101-126 mg/dL DIABETES 126 mg/dL or higher Performed By: #### A CBC, CMPF #### Testing performed at [address] [address] Potassium [Moles/Vol] 4.5 mmol/L Normal 3.5-5.1 [facility] Comment on above: Performed By: #### A CBC, CMPF #### Testing performed at [address] [address] Sodium [Moles/Vol] 138 mmol/L Normal 136-145 [facility] Comment on above: Performed By: #### A CBC, CMPF #### Testing performed at [address] [address] Vital Signs Date Time Vital Sign Value Performing Clinician Facility 05-05-2024 10:27-0500 Body mass index (BMI) [Ratio] 21.99 kg/m2 [employer] Work Phone: [facility] 05-05-2024 10:27-0500 Body weight 59.93 kg [employer] Work Phone: [facility] 05-20-2023 09:14-0500 Diastolic blood pressure 88 mm[Hg] Marielena Archer [facility] 05-20-2023 09:14-0500 Mean blood pressure 101 mm[Hg] Marielena Archer [facility] 05-20-2023 09:14-0500 Systolic blood pressure 128 mm[Hg] Marielena Archer [facility] 05-20-2023 09:03-0500 Blood Pressure Location Marielena Archer [facility] 05-20-2023 09:03-0500 Body temperature 97.34 [degF] Marielena Archer [facility] 05-20-2023 09:03-0500 Diastolic blood pressure 96 mm[Hg] Marielena Archer [facility] 05-20-2023 09:03-0500 Heart rate 87 /min Marielena Archer [facility] 05-20-2023 09:03-0500 Respiratory rate 16 /min Marielena Archer [facility] 05-20-2023 09:03-0500 Systolic blood pressure 130 mm[Hg] Marielena Archer [facility] 12-29-2022 11:45-0400 Body height 167.64 cm Violette Rucker Other [employer] Other 12-29-2022 11:45-0400 Body mass index (BMI) [Ratio] 19.92 kg/m2 Violette Rucker Other [employer] Other 12-29-2022 11:45-0400 Body temperature 97.6 [degF] Violette Rucker Other [employer] Other 12-29-2022 11:45-0400 Body weight 55.97 kg Violette Rucker Other [employer] Other 12-29-2022 11:45-0400 Diastolic blood pressure 80 mm[Hg] Violette Rucker Other [employer] Other 12-29-2022 11:45-0400 Respiratory rate 18 /min Violette Rucker Other [employer] Other 12-29-2022 11:45-0400 SaO2% (BldA) [Mass fraction] 99 % Violette Rucker Other [employer] [facility] [employer] Other 12-29-2022 11:45-0400 Systolic blood pressure 122 mm[Hg] Violette Rucker Other [employer] Other 08-27-2022 14:28-0400 Blood Pressure Location Marielena Gianni [facility] 08-27-2022 14:28-0400 Body temperature 97.52 [degF] Marielena Gianni [facility] 08-27-2022 14:28-0400 Diastolic blood pressure 84 mm[Hg] Marielena Gianni [facility] 08-27-2022 14:28-0400 Heart rate 88 /min Marielena Gianni [facility] 08-27-2022 14:28-0400 Systolic blood pressure 117 mm[Hg] Marielena Gianni [facility] 02-26-2022 14:04-0500 Blood Pressure Location Marielena Gianni [facility] 02-26-2022 14:04-0500 Body temperature 96.98 [degF] Marielena Gianni [facility] 02-26-2022 14:04-0500 Diastolic blood pressure 84 mm[Hg] Marielena Gianni [facility] 02-26-2022 14:04-0500 Heart rate 82 /min Marielena Gianni [facility] 02-26-2022 14:04-0500 Systolic blood pressure 120 mm[Hg] Marielena Gianni [facility] 08-29-2021 15:11-0400 Diastolic blood pressure 86 mm[Hg] Marielena Pelayoz [facility] 08-29-2021 15:11-0400 Mean blood pressure 99 mm[Hg] Marielena Hobsonmetz [facility] 08-29-2021 15:11-0400 Systolic blood pressure 124 mm[Hg] Marielena Archer [facility] 08-29-2021 15:07-0400 Blood Pressure Location Marielenamichelle Archer [facility] 08-29-2021 15:07-0400 Body temperature 98.24 [degF] Marielena Archer [facility] 08-29-2021 15:07-0400 Diastolic blood pressure 91 mm[Hg] Marielena Pelayoz [facility] 08-29-2021 15:07-0400 Heart rate 85 /min Marielena Archer [facility] 08-29-2021 15:07-0400 SaO2% (BldA) [Mass fraction] 100 % Marielenamichelle HobsonGianni [facility] 08-29-2021 15:07-0400 Systolic blood pressure 129 mm[Hg] Marielena Hobsonmetz [facility] Encounters Encounter Date Encounter Type Care Provider Facility Start: 05-18-2024 ambulatory Terrell Deshpande Facility:[facility] Start: 05-05-2024 End: 05-05-2024 Bamboo flowsheet Rocky Renata DO Work Phone: [facility] Start: 05-05-2024 End: 05-05-2024 Bamboo flowsheet Rocky Renata DO Work Phone: [facility] Start: 05-05-2024 End: 05-05-2024 Patient encounter procedure Rocky Renata DO Work Phone: [facility] Start: 05-05-2024 End: 05-05-2024 Periodic preventive med est patient 18-39 yrs Rocky Renata DO Work Phone: [facility] Comment on above: Well woman exam with routine gynecological exam Start: 09-20-2023 End: 09-20-2023 ambulatory KERMIT A BROWN Not Available Start: 09-06-2023 End: 09-06-2023 ambulatory KERMIT A BROWN Not Available Start: 08-20-2023 End: 08-20-2023 ambulatory KERMIT A BROWN Not Available Start: 05-20-2023 End: 05-20-2023 ambulatory Marielena Archer Facility:[facility] Start: 05-20-2023 End: 05-20-2023 Patient encounter procedure Marielena Archer [facility] Start: 04-17-2023 End: 04-17-2023 ambulatory ROCKY RENATA Not Available Start: 04-17-2023 End: 04-17-2023 ambulatory ROCKY RENATA Not Available Start: 03-11-2023 End: 03-11-2023 ambulatory Marielena Archer Facility:[facility] Start: 12-29-2022 End: 12-29-2022 ambulatory Violette Rucker Other [employer] Other Start: 12-29-2022 Office outpatient vi sit 15 minutes Violette Rucker [facility] Start: 08-27-2022 End: 08-27-2022 Patient encounter procedure Marielenamichelle Archer [facility] Start: 04-11-2022 End: 04-11-[address] ROCKY YANEZ Facility: Start: 02-26-2022 End: 02-26-2022 Patient encounter procedure Marielena Archer [facility] Start: 01-24-2022 End: 01-24-[address] ROD LISTED REQUEST Facility: Start: 08-29-2021 End: 08-29-2021 Patient encounter procedure Marielena A Gianni [facility] Start: 08-03-2021 End: 08-03-2021 Patient encounter procedure Marielena Archer [facility] Procedures Date Procedure Procedure Detail Performing Clinician Start: 04-10-2021 Abdominal hysterectomy Marielena Gianni Comment on above: Dr Yanez in [place] Start: 03-15-2021 Colonoscopy Marielena belcher Comment on above: small internal hemor roids back injections Marielena figueroa hernia Marielena Hobsonmetz LEAP Marielena Hobsonmetz Ligation of fallopian tube B eth Gianni None (qualifier value) Marielena Hobsonmetz Plan of Treatment Date Care Activity Detail Author Start: 05-06-2025 End: 05-06-2025 Patient encounter procedure 05/06/2025 9:00 AM EST Office Visit [facility] [address] [place] [address] Rocky Yanez, DO [address] [place] [address] [facility] Cytology Cervical or vaginal smear or scraping study Pap Smear Pathology and Cytology Routine Well woman exam with routine gynecological exam Ordered: 05/05/2024 [facility] Work Phone: Comment on above: Ordered: 05/05/2024 Human papilloma viru s DNA [Presence] in Unspecified specimen by Probe with amplification HPV DNA probe, amplified Microbiology Routine Well woman exam with routine gynecological exam Ordered: 05/05/2024 [facility] Comment on above: Ordered: 05/05/2024 Immunizations Immunization Date Immunization Notes Care Provider Fa cility NEGATED: Highlighted row has not occurred!05-16-2023 influenza virus vaccine, unspecified formulation Marielena Gianni [facility] NEGATED: Highlighted row has not occurred!03-08-2023 influenza virus vaccine, unspecified formulation Marielena Gianni [facility] NEGATED: Highlighted row has not occurred!01-10-2023 influenza virus vaccine, unspecified formulation Marielena Gianni [facility] NEGATED: Highlighted row has not occurred!02-26-2022 influenza virus vaccine, unspecified formulation Marielena Gianni [facility] NEGATED: Highlighted row has not occurred!04-26-2021 influenza virus vaccine, unspecified formulation Marielena Gianni [facility] Payers Date Payer Category Payer Private Health Insurance [facility] MEDICAID [id number] 2013 Medicaid [id number] 1991 Unknown [id number] 1991 Unknown [id number] 1991 Unknown [id number] [id number] 1991 Unknown [id number] [id number] 1991 Unknown [id number] [id number] 1991 Unknown [id number] 1259 1991 Unknown [id number] 727 1991 Unknown [id number] 1991 Unknown [id number] 1959 Unknown [id number] Social History Date Type Detail Facility Start: 05-09-2021 End: 01-25-2023 Tobacco smoking status Ex-smoker (finding) [facility] Start: 09-20-2023 Sex Assigned At Female F [facility] of tobacco use [facility] smoker [facility] History of tobacco use Cigarette Smoker N [facility] History of tobacco use Passive smoker [facility] Start: 01-25-2023 Tobacco use and exposure Smokeless tobacco non-user [facility] Start: 09-20-2023 End: 05-05-2024 Alcoholic beverage intake Defer [facility] Start: 09-20-2023 History of Social function [facility] Start: 1990 Sex assigned at Not on file N [facility] Functional Status Date Assessment Result Facility 05-20-2023 Functional Status N/A [facility] 08-27-2022 Functional Status N/A [facility] 02-26-2022 Functional Status N/A [facility] Clinical Notes 08-29-2021 to 05-05-2024 Lela Dyllan, CLINICAL INFORMATION SYSTEMS DIRECTOR - 05/05/2024 10:00 AM EST Note Date & Type Note Facility 05-05-2024 History of Present illness Narrative Reason for Appointment: Patient ID: Lindsey Saleh is a 33 y.o. female who presents for Well Women Visit Patient presents today for Annual Exam. MEDICATIONS Current Outpatient Medications Medication Instructions albuterol HFA 90 mcg/act inhaler 2 puffs, Inhalation, Every 6 hours PRN buPROPion SR (WELLBUTRIN SR) 150 mg, Oral, 2 times daily ibuprofen 800 mg, Oral, 3 times daily PRN lamoTRIgine (LaMICtal) 100 MG tablet 1 tablet, Oral, 2 times daily linaCLOtide (LINZESS) 72 mcg, Oral, Daily before breakfast, Do not crush or chew. topiramate (TOPAMAX) 200 mg, Daily traMADol (Ultram) 50 MG tablet TAKE 2 TABLETS BY MOUTH 3 TIMES A DAY NEEDED ziprasidone (GEODON) 40 mg, Oral, 2 times daily ALLERGIES Allergies Allergen Reactions Tamiflu [Oseltamivir] Swelling Propoxyphene Red Dye #40 (Allura Red) Zithromax [Azithromycin] PROBLEMS Active Ambulatory Problems Diagnosis Date Noted No Active Ambulatory Problems Resolved Ambulatory Problems Diagnosis Date Noted No Resolved Ambulatory Problems Past Medical History: Diagnosis Date BMI 21.0-21.9, adult Hx of bilateral salpingectomy Hx of total hysterectomy Osteoporosis ([facility]/HCC) HISTORY PAST MEDICAL HISTORY SOCIAL HISTORY Past Medical History: Diagnosis Date BMI 21.0-21.9, adult Hx of bilateral salpingectomy Hx of total hysterectomy Osteoporosis (CMS/HCC) x2 Social History Tobacco Use Smoking status: Former Types: Cigarettes Passive exposure: Past Smokeless tobacco: Never Vaping Use Vaping status: Unknown Substance Use Topics Alcohol use: Defer Drug use: Defer FAMILY HISTORY Family History Problem Relation Name Age of Onset Aneurysm Father Diabetes Other Hypertension Other SURGICAL HISTORY Past Surgical History: Procedure Laterality Date EXPLORATORY LAPAROTOMY 04/11/2021 abdominal muscle hemorrhage HERNIA REPAIR 06/2014 LAPAROSCOPY ABDOMEN DIAGNOSTIC 2014 with LEEP [place] REPAIR SLIDING INGUINAL HERNIA Right 09/16/2014 TONSILLECTOMY 09/2018 TOTAL ABDOMINAL HYSTERECTOMY W/ BILATERAL SALPINGOOPHORECTOMY 04/10/2021 cystoscopy , exploratory laparotomy TUBAL LIGATION 03/29/2017 REVIEW OF SYSTEMS Review of Systems: Review of Systems Constitutional: Negative. HENT: Negative. Eyes: Negative. Respiratory: Negative. Cardiovascular: Negative. Gastrointestinal: Negative. Genitourinary: Negative. Musculoskeletal: Negative. Skin: Negative. Neurological: Negative. All other systems reviewed and are negative. Hematological: Negative. Endocrine: Negative. Allergic/Immunologic: Negative. OBJECTIVE Objective: Physical Exam Constitutional: Appearance: Normal appearance. She is well-developed. Genitourinary: Vulva normal. Vaginal cuff intact. Cervix is absent. Uterus is absent. Cardiovascular: Rate and Rhythm: Normal rate and regular rhythm. Abdominal: General: Bowel sounds are normal. There is no distension. Palpations: Abdomen is soft. Tenderness: There is no abdominal tenderness. There is no guarding or rebound. Musculoskeletal: General: No swelling. Normal range of motion. Right lower leg: No edema. Left lower leg: No edema. Neurological: Mental Status: She is alert and oriented to person, place, and time. Skin: General: Skin is warm and dry. Psychiatric: Mood and Affect: Mood normal. Behavior: Behavior normal. Vitals and nursing note reviewed. Exam conducted with a battery plate assembler present. Vitals: Estimated body mass index is 21.99 kg/m as calculated from the following: Height as of 09/20/23: 5' 5 . Weight as of this encounter: 132 lb 1.9 oz. BP: No LMP recorded. Patient has had a hysterectomy. ASSESSMENT & PLAN ICD-10-CM 1. Well woman exam with routine gynecological exam Z01.419 Pap Smear HPV DNA probe, amplified Annual Exam: Patient presents today for an annual exam. Patient states she is doing well and has no complaints. Pap was obtained without difficulty. Orders Placed This Encounter Procedures HPV DNA probe, amplified Follow Up: Patient is to return in one year for annual unless needed otherwise. Documented by Lela Mijares LPN on behalf of: Rocky Yanez DO documented in this encounter [facility] 05-20-2023 Hospital Discharge instructions Patient Education 05/20/2023 09:03:17 Chronic Constipation Chronic Constipation Chronic constipation is a condition in which a person has three or fewer bowel movements a week, for 3 months or longer. This condition is especially common in older adults. What are the causes? Causes of chronic constipation may include: Not drinking enough fluid, eating enough food or fiber, or getting enough physical activity. . A tear in the anus (anal fissure). Blockage in the bowel (bowel obstruction). Narrowing of the bowel (bowel stricture). Having a long-term medical condition, such as: ?Diabetes, hypothyroidism, or iron-deficiency anemia. ?Stroke or spinal cord injury. ?Multiple sclerosis or Parkinson's disease. ?Colon cancer. ?Dementia. ?Inflammatory bowel disease (IBD), outward collapse of the rectum (rectal prolapse), or hemorrhoids. Taking certain medicines, including: ?Narcotics. These are a certain type of prescription pain medicine. ?Antacids or iron supplements. ?Water pills (diuretics). ?Certain blood pressure medicines. ?Anti-seizure medicines. ?Antidepressants. ?Medicines for Parkinson's disease. Other causes of this condition may include: Stress. Problems in the nerves and muscles that control the movement of stool. Weak or impaired pelvic floor muscles. What increases the risk? You may be at higher risk for chronic constipation if: You are older than age 70. You are female. You live in a long-term care facility. You have a long-term disease. You have a mental health disorder or eating disorder. What are the signs or symptoms? The main symptom of chronic constipation is having three or fewer bowel movements a week for several weeks. Other signs and symptoms may vary from person to person. These include: Pushing hard (straining) to pass stool, or having hard or lumpy stools. Painful bowel movements. Having lower abdominal discomfort, such as cramps or bloating. Being unable to have a bowel movement when you feel the urge, or feeling like you still need to pass stool after a bowel movement. Feeling that you have something in your rectum that is blocking or preventing bowel movements. Seeing blood on the toilet paper or in your stool. Worsening confusion (in older adults). How is this diagnosed? This condition may be diagnosed based on: Your symptoms and medical history. You will be asked about your symptoms, lifestyle, diet, and any medicines that you are taking. A physical exam. ?Your abdomen will be examined. ?A digital rectal exam may be done. For this exam, a health care provider places a lubricated, gloved finger into the rectum. Tests to check for any underlying causes of your constipation. These may be ordered if you have bleeding in your rectum, weight loss, or a family history of colon cancer. In these cases, you may have: ?Imaging studies of the colon. These may include X-ray, ultrasound, or a CT scan. ?Blood tests. ?A procedure to examine the inside of your colon (colonoscopy). ?More specialized tests to check: ?Whether your anal sphincter works well. This is a ring-shaped muscle that controls the closing of the anus. ?How well food moves through your colon. ?Tests to measure the nerve signal in your pelvic floor muscles (electromyography). How is this treated? Treatment for chronic constipation depends on the cause. Most often, treatment starts with: Being more active and getting regular exercise. Drinking more fluids. Adding fiber to your diet. Sources of fiber include fruits, vegetables, whole grains, and fiber supplements. Using medicines such as stool softeners or medicines that increase contractions in your digestive system (pro-motility agents). Training your pelvic muscles with biofeedback. Surgery, if there is obstruction. Treatment may also include: Stopping or changing some medicines if they cause constipation. Using a fiber supplement (bulk laxative) or stool softener. Using a prescription laxative. This works by absorbing water into your colon (osmotic laxative). You may also need to see a specialist who treats conditions of the digestive system (pulper tender). Follow these instructions at home: Medicines Take [id number] and prescription medicines only as told by your health care provider. If you are taking a laxative, take it as told by your health care provider. Eating and drinking Eat a balanced diet that includes enough fiber. Ask your health care provider to recommend a diet that is right for you. Drink clear fluids, especially water. Avoid drinking alcohol, caffeine, and soda. These can make constipation worse. Drink enough fluid to keep your urine pale yellow. General instructions Get some physical activity every day. Ask your health care provider what activities are safe for you. Get colon cancer screenings as told by your health care provider. Keep all follow-up visits as told by your health care provider. This is important. Contact a health care provider if you have: Three or fewer bowel movements a week. Stools that are hard or lumpy. Blood on the toilet paper or in your stool after you have a bowel movement. Unexplained weight loss. Rectum (rectal) pain. Stool leakage. Nausea or vomiting. Get help right away if you have: Rectal bleeding or you pass blood clots. Severe rectal pain. Body tissue that pushes out (protrudes) from your anus. Severe pain or bloating (distension) in your abdomen. Vomiting that you cannot control. Summary Chronic constipation is a condition in which a person has three or fewer bowel movements a week, for 3 months or longer. You may have a higher risk for this condition if you are an older adult, you are female, or you have a long-term disease. Treatment for this condition depends on the cause. Most treatments for chronic constipation include adding fiber to your diet, drinking more fluids, and getting more physical activity. You may also need to treat any underlying medical conditions or stop or change certain medicines if they cause constipation. If lifestyle changes do not relieve constipation, your health care provider may recommend taking a laxative. This information is not intended to replace advice given to you by your health care provider. Make sure you discuss any questions you have with your health care provider. Document Revised: 02/24/2020 Document Reviewed: 02/24/2020 [employer] Patient Education 2022 [employer]. Follow Up Care 03/11/2023 09:12:02 With:Marielena Archer CNP Address: When:1 year Comments:Or sooner if needed. [facility] 12-29-2022 Evaluation note Encounter Date Diagnosis Assessment Notes Dec, Paronychia of toe of left foot (ICD-10 - L03.032) Discussed diagnosis with patient. I&D performed today, see procedure note. Instructed patient to take medications as prescribed, take with food and full glass of water, complete entire course even if feeling better. Keep area clean and dry. Encouraged warm Epsom salt soaks of finger and warm compress. Keep skin and nail moisturized, good to use Vaseline or triple antibiotic ointment. May use Tylenol or Motrin as needed for discomfort. Follow up with PCP in 3-4 days if symptoms do not improve. Immediate eval if area increases in swelling, redness, warmth, red streaking, purulent drainage, or any other new or concerning symptoms. Patient verbalizes understanding and is agreeable at this time. [facility] Other 05-08-2023 Hospital Discharge instructions Patient Education 08/27/2022 14:22:29 High-Fiber Diet High-Fiber Diet Fiber, also called dietary fiber, is a type of carbohydrate that is found in fruits, vegetables, whole grains, and beans. A high-fiber diet can have many health benefits. Your health care provider may recommend a high-fiber diet to help: Prevent constipation. Fiber can make your bowel movements more regular. Lower your cholesterol. Relieve the following conditions: ?Swelling of veins in the anus (hemorrhoids). ?Swelling and irritation (inflammation) of specific areas of the digestive tract (uncomplicated diverticulosis). ?A problem of the large intestine (colon) that sometimes causes pain and diarrhea (irritable bowel syndrome, IBS). Prevent overeating as part of a weight-loss plan. Prevent heart disease, type 2 diabetes, and certain cancers. What is my plan? The recommended daily fiber intake in grams (g) includes: 38 g for men age 50 or younger. 30 g for men over age 50. 25 g for women age 50 or younger. 21 g for women over age 50. You can get the recommended daily intake of dietary fiber by: Eating a variety of fruits, vegetables, grains, and beans. Taking a fiber supplement, if it is not possible to get enough fiber through your diet. What do I need to know about a high-fiber diet? It is better to get fiber through food sources rather than from fiber supplements. There is not a lot of research about how effective supplements are. Always check the fiber content on the nutrition facts label of any prepackaged food. Look for foodsthat contain 5 g of fiber or more per serving. Talk with a diet and food and nutrition teacher (dietitian) if you have questions about specific foods that are recommended or not recommended for your medical condition, especially if those foods are not listed below. Gradually increase how much fiber you consume. If you increase your intake of dietary fiber too quickly, you may have bloating, cramping, or gas. Drink plenty of water. Water helps you to digest fiber. What are tips for following this plan? Eat a wide variety of high-fiber foods. Make sure that half of the grains that you eat each day are whole grains. Eat breads and cereals that are made with whole-grain flour instead of refined flour or white flour. Eat brown rice, bulgur wheat, or millet instead of white rice. Start the day with a breakfast that is high in fiber, such as a cereal that contains 5 g of fiber or more per serving. Use beans in place of meat in soups, salads, and pasta dishes. Eat high-fiber snacks, such as berries, raw vegetables, nuts, and popcorn. Choose whole fruits and vegetables instead of processed forms like juice or sauce. What foods can I eat? Fruits Berries. Pears. Apples. Oranges. Avocado. Prunes and raisins. Dried figs. Vegetables Sweet potatoes. Spinach. Kale. Artichokes. Cabbage. Broccoli. Cauliflower. Green peas. Carrots. Squash. Grains Whole-grain breads. Multigrain cereal. Oats and oatmeal. Brown rice. Barley. Bulgur wheat. Millet. Quinoa. Bran muffins. Popcorn. [place] wafer crackers. Meats and other proteins [place], kidney, and cardenas beans. Soybeans. Split peas. Lentils. Nuts and seeds. Dairy Fiber-fortified yogurt. Beverages Fiber-fortified soy milk. Fiber-fortified orange juice. Other foods Fiber bars. The items listed above may not be a complete list of recommended foods and beverages. Contact a dietitian for more options. What foods are not recommended? Fruits Fruit juice. Cooked, strained fruit. Vegetables Fried potatoes. Canned vegetables. Well-cooked vegetables. Grains White bread. Pasta made with refined flour. White rice. Meats and other proteins Fatty cuts of meat. Fried chicken or fried fish. Dairy Milk. Yogurt. Cream cheese. Sour cream. Fats and oils [place]. Beverages Soft drinks. Other foods Cakes and pastries. The items listed above may not be a complete list of foods and beverages to avoid. Contact a dietitian for more information. Summary Fiber is a type of carbohydrate. It is found in fruits, vegetables, whole grains, and beans. There are many health benefits of eating a high-fiber diet, such as preventing constipation, lowering blood cholesterol, helping with weight loss, and reducing your risk of heart disease, diabetes, and certain cancers. Gradually increase your intake of fiber. Increasing too fast can result in cramping, bloating, and gas. Drink plenty of water while you increase your fiber. The best sources of fiber include whole fruits and vegetables, whole grains, nuts, seeds, and beans. This information is not intended to replace advice given to you by your health care provider. Make sure you discuss any questions you have with your health care provider. Document Released: 04/08/2006 Document Revised: 02/10/2018 Document Reviewed: 02/10/2018 [employer] Patient Education 2020 [employer]. 08/27/2022 14:22:27 Hemorrhoids Hemorrhoids Hemorrhoids are swollen veins in and around the rectum or anus. There are two types of hemorrhoids: Internal hemorrhoids. These occur in the veins that are just inside the rectum. They may poke through to the outside and become irritated and painful. External hemorrhoids. These occur in the veins that are outside the anus and can be felt as a painful swelling or hard lump near the anus. Most hemorrhoids do not cause serious problems, and they can be managed with home treatments such as diet and lifestyle changes. If home treatments do not help the symptoms, procedures can be done toshrink or remove the hemorrhoids. What are the causes? This condition is caused by increased pressure in the anal area. This pressure may result from various things, including: Constipation. Straining to have a bowel movement. Diarrhea. . Obesity. Sitting for long periods of time. Heavy lifting or other activity that causes you to strain. Anal sex. Riding a bike for a long period of time. What are the signs or symptoms? Symptoms of this condition include: Pain. Anal itching or irritation. Rectal bleeding. Leakage of stool (feces). Anal swelling. One or more lumps around the anus. How is this diagnosed? This condition can often be diagnosed through a visual exam. Other exams or tests may also be done,such as: An exam that involves feeling the rectal area with a gloved hand (digital rectal exam). An exam of the anal canal that is done using a small tube (anoscope). A blood test, if you have lost a significant amount of blood. A test to look inside the colon using a flexible tube with a camera on the end (sigmoidoscopy or colonoscopy). How is this treated? This condition can usually be treated at home. However, various procedures may be done if dietary changes, lifestyle changes, and other home treatments do not help your symptoms. These procedures canhelp make the hemorrhoids smaller or remove them completely. Some of these procedures involve surgery, and others do not. Common procedures include: Rubber band ligation. Rubber bands are placed at the base of the hemorrhoids to cut off their bloodsupply. Sclerotherapy. Medicine is injected into the hemorrhoids to shrink them. Infrared coagulation. A type of light energy is used to get rid of the hemorrhoids. Hemorrhoidectomy surgery. The hemorrhoids are surgically removed, and the veins that supply them are tied off. Stapled hemorrhoidopexy surgery. The surgeon yifan the base of the hemorrhoid to the rectal wall. Follow these instructions at home: Eating and drinking Eat foods that have a lot of fiber in them, such as whole grains, beans, nuts, fruits, and vegetables. Ask your health care provider about taking products that have added fiber (fiber supplements). Reduce the amount of fat in your diet. You can do this by eating low-fat dairy products, eating less red meat, and avoiding processed foods. Drink enough fluid to keep your urine pale yellow. Managing pain and swelling Take warm sitz baths for 20 minutes, 3 4 times a day to ease pain and discomfort. You may do this in a bathtub or using a portable sitz bath that fits over the toilet. If directed, apply ice to the affected area. Using ice packs between sitz baths may be helpful. ?Put ice in a plastic bag. ?Place a towel between your skin and the bag. ?Leave the ice on for 20 minutes, 2 3 times a day. General instructions Take [id number] and prescription medicines only as told by your health care provider. Use medicated creams or suppositories as told. Get regular exercise. Ask your health care provider how much and what kind of exercise is best for you. In general, you should do moderate exercise for at least 30 minutes on most days of the week (150 minutes each week). This can include activities such as walking, biking, or yoga. Go to the bathroom when you have the urge to have a bowel movement. Do not wait. Avoid straining to have bowel movements. Keep the anal area dry and clean. Use wet toilet paper or moist towelettes after a bowel movement. Do not sit on the toilet for long periods of time. This increases blood pooling and pain. Keep all follow-up visits as told by your health care provider. This is important. Contact a health care provider if you have: Increasing pain and swelling that are not controlled by treatment or medicine. Difficulty having a bowel movement, or you are unable to have a bowel movement. Pain or inflammation outside the area of the hemorrhoids. Get help right away if you have: Uncontrolled bleeding from your rectum. Summary Hemorrhoids are swollen veins in and around the rectum or anus. Most hemorrhoids can be managed with home treatments such as diet and lifestyle changes. Taking warm sitz baths can help ease pain and discomfort. In severe cases, procedures or surgery can be done to shrink or remove the hemorrhoids. This information is not intended to replace advice given to you by your health care provider. Make sure you discuss any questions you have with your health care provider. Document Revised: 10/18/2021 Document Reviewed: 10/18/2021 [employer] Patient Education 2022 [employer]. 08/27/2022 14:22:26 Chronic Constipation Chronic Constipation Chronic constipation is a condition in which a person has three or fewer bowel movements a week, for 3 months or longer. This condition is especially common in older adults. What are the causes? Causes of chronic constipation may include: Not drinking enough fluid, eating enough food or fiber, or getting enough physical activity. . A tear in the anus (anal fissure). Blockage in the bowel (bowel obstruction). Narrowing of the bowel (bowel stricture). Having a long-term medical condition, such as: ?Diabetes, hypothyroidism, or iron-deficiency anemia. ?Stroke or spinal cord injury. ?Multiple sclerosis or Parkinson's disease. ?Colon cancer. ?Dementia. ?Inflammatory bowel disease (IBD), outward collapse of the rectum (rectal prolapse), or hemorrhoids. Taking certain medicines, including: ?Narcotics. These are a certain type of prescription pain medicine. ?Antacids or iron supplements. ?Water pills (diuretics). ?Certain blood pressure medicines. ?Anti-seizure medicines. ?Antidepressants. ?Medicines for Parkinson's disease. Other causes of this condition may include: Stress. Problems in the nerves and muscles that control the movement of stool. Weak or impaired pelvic floor muscles. What increases the risk? You may be at higher risk for chronic constipation if: You are older than age 70. You are female. You live in a long-term care facility. You have a long-term disease. You have a mental health disorder or eating disorder. What are the signs or symptoms? The main symptom of chronic constipation is having three or fewer bowel movements a week for several weeks. Other signs and symptoms may vary from person to person. These include: Pushing hard (straining) to pass stool, or having hard or lumpy stools. Painful bowel movements. Having lower abdominal discomfort, such as cramps or bloating. Being unable to have a bowel movement when you feel the urge, or feeling like you still need to pass stool after a bowel movement. Feeling that you have something in your rectum that is blocking or preventing bowel movements. Seeing blood on the toilet paper or in your stool. Worsening confusion (in older adults). How is this diagnosed? This condition may be diagnosed based on: Your symptoms and medical history. You will be asked about your symptoms, lifestyle, diet, and any medicines that you are taking. A physical exam. ?Your abdomen will be examined. ?A digital rectal exam may be done. For this exam, a health care provider places a lubricated, gloved finger into the rectum. Tests to check for any underlying causes of your constipation. These may be ordered if you have bleeding in your rectum, weight loss, or a family history of colon cancer. In these cases, you may have: ?Imaging studies of the colon. These may include X-ray, ultrasound, or a CT scan. ?Blood tests. ?A procedure to examine the inside of your colon (colonoscopy). ?More specialized tests to check: ?Whether your anal sphincter works well. This is a ring-shaped muscle that controls the closing of the anus. ?How well food moves through your colon. ?Tests to measure the nerve signal in your pelvic floor muscles (electromyography). How is this treated? Treatment for chronic constipation depends on the cause. Most often, treatment starts with: Being more active and getting regular exercise. Drinking more fluids. Adding fiber to your diet. Sources of fiber include fruits, vegetables, whole grains, and fiber supplements. Using medicines such as stool softeners or medicines that increase contractions in your digestive system (pro-motility agents). Training your pelvic muscles with biofeedback. Surgery, if there is obstruction. Treatment may also include: Stopping or changing some medicines if they cause constipation. Using a fiber supplement (bulk laxative) or stool softener. Using a prescription laxative. This works by absorbing water into your colon (osmotic laxative). You may also need to see a specialist who treats conditions of the digestive system (pulper tender). Follow these instructions at home: Medicines Take [id number]-[id number] and prescription medicines only as told by your health care provider. If you are taking a laxative, take it as told by your health care provider. Eating and drinking Eat a balanced diet that includes enough fiber. Ask your health care provider to recommend a diet that is right for you. Drink clear fluids, especially water. Avoid drinking alcohol, caffeine, and soda. These can make constipation worse. Drink enough fluid to keep your urine pale yellow. General instructions Get some physical activity every day. Ask your health care provider what activities are safe for you. Get colon cancer screenings as told by your health care provider. Keep all follow-up visits as told by your health care provider. This is important. Contact a health care provider if you have: Three or fewer bowel movements a week. Stools that are hard or lumpy. Blood on the toilet paper or in your stool after you have a bowel movement. Unexplained weight loss. Rectum (rectal) pain. Stool leakage. Nausea or vomiting. Get help right away if you have: Rectal bleeding or you pass blood clots. Severe rectal pain. Body tissue that pushes out (protrudes) from your anus. Severe pain or bloating (distension) in your abdomen. Vomiting that you cannot control. Summary Chronic constipation is a condition in which a person has three or fewer bowel movements a week, for 3 months or longer. You may have a higher risk for this condition if you are an older adult, you are female, or you have a long-term disease. Treatment for this condition depends on the cause. Most treatments for chronic constipation includeadding fiber to your diet, drinking more fluids, and getting more physical activity. You may also need to treat any underlying medical conditions or stop or change certain medicines if they cause constipation. If lifestyle changes do not relieve constipation, your health care provider may recommend taking a laxative. This information is not intended to replace advice given to you by your health care provider. Make sure you discuss any questions you have with your health care provider. Document Revised: 02/24/2020 Document Reviewed: 02/24/2020 [employer] Patient Education 2022 [employer]. Follow Up Care 02/26/2022 14:27:48 With:Marielena Archer CNP Address: When:3 months [facility] 11-07-2022 Hospital Discharge instructions Patient Education 02/26/2022 14:12:31 Chronic Constipation Chronic Constipation Chronic constipation is a condition in which a person has three or fewer bowel movements a week, for three months or longer. This condition is especially common in older adults. The two main kinds of chronic constipation are secondary constipation and functional constipation. Secondary constipation results from another condition or a treatment. Functional constipation, also called primary or idiopathic constipation, is divided into three types: Normal transit constipation. In this type, movement of stool through the colon (stool transit) occurs normally. Slow transit constipation. In this type, stool moves slowly through the colon. Outlet constipation or pelvic floor dysfunction. In this type, the nerves and muscles that empty the rectum do not work normally. What are the causes? Causes of secondary constipation may include: Failing to drink enough fluid, eat enough food or fiber, or get physically active. . A tear in the anus (anal fissure). Blockage in the bowel (bowel obstruction). Narrowing of the bowel (bowel stricture). Having a long-term medical condition, such as: ?Diabetes. ?Hypothyroidism. ?Multiple sclerosis. ?Parkinson disease. ?Stroke. ?Spinal cord injury. ?Dementia. ?Colon cancer. ?Inflammatory bowel disease (IBD). ?Iron-deficiency anemia. ?Outward collapse of the rectum (rectal prolapse). ?Hemorrhoids. Taking certain medicines, including: ?Narcotics. These are a certain type of prescription pain medicine. ?Antacids. ?Iron supplements. ?Water pills (diuretics). ?Certain blood pressure medicines. ?Anti-seizure medicines. ?Antidepressants. ?Medicines for Parkinson disease. The cause of functional constipation is not known, but some conditions are associated with it. These conditions include: Stress. Problems in the nerves and muscles that control stool transit. Weak or impaired pelvic floor muscles. What increases the risk? You may be at higher risk for chronic constipation if you: Are older than age 70. Are female. Live in a long-term care facility. Do not get much exercise or physical activity (have a sedentary lifestyle). Do not drink enough fluids. Do not eat enough food, especially fiber. Have a long-term disease. Have a mental health disorder or eating disorder. Take many medicines. What are the signs or symptoms? The main symptom of chronic constipation is having three or fewer bowel movements a week for several weeks. Other signs and symptoms may vary from person to person. These include: Pushing hard (straining) to pass stool. Painful bowel movements. Having hard or lumpy stools. Having lower belly discomfort, such as cramps or bloating. Being unable to have a bowel movement when you feel the urge. Feeling like you still need to pass stool after a bowel movement. Feeling that you have something in your rectum that is blocking or preventing bowel movements. Seeing blood on the toilet paper or in your stool. Worsening confusion (in older adults). How is this diagnosed? This condition may be diagnosed based on: Symptoms and medical history. You will be asked about your symptoms, lifestyle, diet, and any medicines that you are taking. Physical exam. ?Your belly (abdomen) will be examined. ?A digital rectal exam may be done. For this exam, a health care provider places a lubricated, gloved finger into the rectum. Other tests to check for any underlying causes of your constipation. These may be ordered if you have bleeding in your rectum, weight loss, or a family history of colon cancer. In these cases, you may have: ?Imaging studies of the colon. These may include X-ray, ultrasound, or CT scan. ?Blood tests. ?A procedure to examine the inside of your colon (colonoscopy). ?More specialized tests to check: ?Whether your anal sphincter works well. This is a ring-shaped muscle that controls the closing of the anus. ?How well food moves through your colon. ?Tests to measure the nerve signal in your pelvic floor muscles (electromyography). How is this treated? Treatment for chronic constipation depends on the cause. Most often, treatment starts with: Being more active and getting regular exercise. Drinking more fluids. Adding fiber to your diet. Sources of fiber include fruits, vegetables, whole grains, and fiber supplements. Using medicines such as stool softeners or medicines that increase contractions in your digestive system (pro-motility agents). Training your pelvic muscles with biofeedback. Surgery, if there is obstruction. Treatment for secondary chronic constipation depends on the underlying condition. You may need to: Stop or change some medicines if they cause constipation. Use a fiber supplement (bulk laxative) or stool softener. Use prescription laxative. This works by absorbing water into your colon (osmotic laxative). You may also need to see a specialist who treats conditions of the digestive system (pulper tender). Follow these instructions at home: Take [id number]-[id number] and prescription medicines only as told by your health care provider. If you are taking a laxative, take it as told by your health care provider. Eat a balanced diet that includes enough fiber. Ask your health care provider to recommend a diet that is right for you. Drink clear fluids, especially water. Avoid drinking alcohol, caffeine, and soda. Drink enough fluid to keep your urine pale yellow. Get some physical activity every day. Ask your health care provider what physical activities are safe for you. Get colon cancer screenings as told by your health care provider. Keep all follow-up visits as told by your health care provider. This is important. Contact a health care provider if: You are having three or fewer bowel movements a week. Your stools are hard or lumpy. You notice blood on the toilet paper or in your stool after you have a bowel movement. You have unexplained weight loss. You have rectum (rectal) pain. You have stool leakage. You experience nausea or vomiting. Get help right away if: You have rectal bleeding or you pass blood clots. You have severe rectal pain. You have body tissue that pushes out (protrudes) from your anus. You have severe pain or bloating (distension) in your abdomen. You have vomiting that you cannot control. Summary Chronic constipation is a condition in which a person has three or fewer bowel movements a week, for three months or longer. You may have a higher risk for this condition if you are an older adult, or if you do not drink enough water or get enough physical activity (are sedentary). Treatment for this condition depends on the cause. Most treatments for chronic constipation includeadding fiber to your diet, drinking more fluids, and getting more physical activity. You may also need to treat any underlying medical conditions or stop or change certain medicines if they cause constipation. If lifestyle changes do not relieve constipation, your health care provider may recommend taking a laxative. This information is not intended to replace advice given to you by your health care provider. Make sure you discuss any questions you have with your health care provider. Document Released: 11/05/2017 Document Revised: 03/21/2018 Document Reviewed: 12/24/2017 [employer] Patient Education 2020 [employer]. Follow Up Care 08/29/2021 15:25:37 With:Marielena Archer CNP Address: When:3 months [facility] 05-10-2022 Hospital Discharge instructions Patient Education 08/29/2021 15:22:30 Chronic Constipation Chronic Constipation Chronic constipation is a condition in which a person has three or fewer bowel movements a week, for three months or longer. This condition is especially common in older adults. The two main kinds of chronic constipation are secondary constipation and functional constipation. Secondary constipation results from another condition or a treatment. Functional constipation, also called primary or idiopathic constipation, is divided into three types: Normal transit constipation. In this type, movement of stool through the colon (stool transit) occurs normally. Slow transit constipation. In this type, stool moves slowly through the colon. Outlet constipation or pelvic floor dysfunction. In this type, the nerves and muscles that empty the rectum do not work normally. What are the causes? Causes of secondary constipation may include: Failing to drink enough fluid, eat enough food or fiber, or get physically active. . A tear in the anus (anal fissure). Blockage in the bowel (bowel obstruction). Narrowing of the bowel (bowel stricture). Having a long-term medical condition, such as: ?Diabetes. ?Hypothyroidism. ?Multiple sclerosis. ?Parkinson disease. ?Stroke. ?Spinal cord injury. ?Dementia. ?Colon cancer. ?Inflammatory bowel disease (IBD). ?Iron-deficiency anemia. ?Outward collapse of the rectum (rectal prolapse). ?Hemorrhoids. Taking certain medicines, including: ?Narcotics. These are a certain type of prescription pain medicine. ?Antacids. ?Iron supplements. ?Water pills (diuretics). ?Certain blood pressure medicines. ?Anti-seizure medicines. ?Antidepressants. ?Medicines for Parkinson disease. The cause of functional constipation is not known, but some conditions are associated with it. These conditions include: Stress. Problems in the nerves and muscles that control stool transit. Weak or impaired pelvic floor muscles. What increases the risk? You may be at higher risk for chronic constipation if you: Are older than age 70. Are female. Live in a long-term care facility. Do not get much exercise or physical activity (have a sedentary lifestyle). Do not drink enough fluids. Do not eat enough food, especially fiber. Have a long-term disease. Have a mental health disorder or eating disorder. Take many medicines. What are the signs or symptoms? The main symptom of chronic constipation is having three or fewer bowel movements a week for several weeks. Other signs and symptoms may vary from person to person. These include: Pushing hard (straining) to pass stool. Painful bowel movements. Having hard or lumpy stools. Having lower belly discomfort, such as cramps or bloating. Being unable to have a bowel movement when you feel the urge. Feeling like you still need to pass stool after a bowel movement. Feeling that you have something in your rectum that is blocking or preventing bowel movements. Seeing blood on the toilet paper or in your stool. Worsening confusion (in older adults). How is this diagnosed? This condition may be diagnosed based on: Symptoms and medical history. You will be asked about your symptoms, lifestyle, diet, and any medicines that you are taking. Physical exam. ?Your belly (abdomen) will be examined. ?A digital rectal exam may be done. For this exam, a health care provider places a lubricated, gloved finger into the rectum. Other tests to check for any underlying causes of your constipation. These may be ordered if you have bleeding in your rectum, weight loss, or a family history of colon cancer. In these cases, you may have: ?Imaging studies of the colon. These may include X-ray, ultrasound, or CT scan. ?Blood tests. ?A procedure to examine the inside of your colon (colonoscopy). ?More specialized tests to check: ?Whether your anal sphincter works well. This is a ring-shaped muscle that controls the closing of the anus. ?How well food moves through your colon. ?Tests to measure the nerve signal in your pelvic floor muscles (electromyography). How is this treated? Treatment for chronic constipation depends on the cause. Most often, treatment starts with: Being more active and getting regular exercise. Drinking more fluids. Adding fiber to your diet. Sources of fiber include fruits, vegetables, whole grains, and fiber supplements. Using medicines such as stool softeners or medicines that increase contractions in your digestive system (pro-motility agents). Training your pelvic muscles with biofeedback. Surgery, if there is obstruction. Treatment for secondary chronic constipation depends on the underlying condition. You may need to: Stop or change some medicines if they cause constipation. Use a fiber supplement (bulk laxative) or stool softener. Use prescription laxative. This works by absorbing water into your colon (osmotic laxative). You may also need to see a specialist who treats conditions of the digestive system (pulper tender). Follow these instructions at home: Take [id number] and prescription medicines only as told by your health care provider. If you are taking a laxative, take it as told by your health care provider. Eat a balanced diet that includes enough fiber. Ask your health care provider to recommend a diet that is right for you. Drink clear fluids, especially water. Avoid drinking alcohol, caffeine, and soda. Drink enough fluid to keep your urine pale yellow. Get some physical activity every day. Ask your health care provider what physical activities are safe for you. Get colon cancer screenings as told by your health care provider. Keep all follow-up visits as told by your health care provider. This is important. Contact a health care provider if: You are having three or fewer bowel movements a week. Your stools are hard or lumpy. You notice blood on the toilet paper or in your stool after you have a bowel movement. You have unexplained weight loss. You have rectum (rectal) pain. You have stool leakage. You experience nausea or vomiting. Get help right away if: You have rectal bleeding or you pass blood clots. You have severe rectal pain. You have body tissue that pushes out (protrudes) from your anus. You have severe pain or bloating (distension) in your abdomen. You have vomiting that you cannot control. Summary Chronic constipation is a condition in which a person has three or fewer bowel movements a week, for three months or longer. You may have a higher risk for this condition if you are an older adult, or if you do not drink enough water or get enough physical activity (are sedentary). Treatment for this condition depends on the cause. Most treatments for chronic constipation includeadding fiber to your diet, drinking more fluids, and getting more physical activity. You may also need to treat any underlying medical conditions or stop or change certain medicines if they cause constipation. If lifestyle changes do not relieve constipation, your health care provider may recommend taking a laxative. This information is not intended to replace advice given to you by your health care provider. Make sure you discuss any questions you have with your health care provider. Document Released: 11/05/2017 Document Revised: 03/21/2018 Document Reviewed: 12/24/2017 [employer] Patient Education 2020 [employer]. 08/29/2021 15:22:25 High-Fiber Diet High-Fiber Diet Fiber, also called dietary fiber, is a type of carbohydrate that is found in fruits, vegetables, whole grains, and beans. A high-fiber diet can have many health benefits. Your health care provider may recommend a high-fiber diet to help: Prevent constipation. Fiber can make your bowel movements more regular. Lower your cholesterol. Relieve the following conditions: ?Swelling of veins in the anus (hemorrhoids). ?Swelling and irritation (inflammation) of specific areas of the digestive tract (uncomplicated diverticulosis). ?A problem of the large intestine (colon) that sometimes causes pain and diarrhea (irritable bowel syndrome, IBS). Prevent overeating as part of a weight-loss plan. Prevent heart disease, type 2 diabetes, and certain cancers. What is my plan? The recommended daily fiber intake in grams (g) includes: 38 g for men age 50 or younger. 30 g for men over age 50. 25 g for women age 50 or younger. 21 g for women over age 50. You can get the recommended daily intake of dietary fiber by: Eating a variety of fruits, vegetables, grains, and beans. Taking a fiber supplement, if it is not possible to get enough fiber through your diet. What do I need to know about a high-fiber diet? It is better to get fiber through food sources rather than from fiber supplements. There is not a lot of research about how effective supplements are. Always check the fiber content on the nutrition facts label of any prepackaged food. Look for foodsthat contain 5 g of fiber or more per serving. Talk with a diet and food and nutrition teacher (dietitian) if you have questions about specific foods that are recommended or not recommended for your medical condition, especially if those foods are not listed below. Gradually increase how much fiber you consume. If you increase your intake of dietary fiber too quickly, you may have bloating, cramping, or gas. Drink plenty of water. Water helps you to digest fiber. What are tips for following this plan? Eat a wide variety of high-fiber foods. Make sure that half of the grains that you eat each day are whole grains. Eat breads and cereals that are made with whole-grain flour instead of refined flour or white flour. Eat brown rice, bulgur wheat, or millet instead of white rice. Start the day with a breakfast that is high in fiber, such as a cereal that contains 5 g of fiber or more per serving. Use beans in place of meat in soups, salads, and pasta dishes. Eat high-fiber snacks, such as berries, raw vegetables, nuts, and popcorn. Choose whole fruits and vegetables instead of processed forms like juice or sauce. What foods can I eat? Fruits Berries. Pears. Apples. Oranges. Avocado. Prunes and raisins. Dried figs. Vegetables Sweet potatoes. Spinach. Kale. Artichokes. Cabbage. Broccoli. Cauliflower. Green peas. Carrots. Squash. Grains Whole-grain breads. Multigrain cereal. Oats and oatmeal. Brown rice. Barley. Bulgur wheat. Millet. Quinoa. Bran muffins. Popcorn. [place] wafer crackers. Meats and other proteins [place], kidney, and cardenas beans. Soybeans. Split peas. Lentils. Nuts and seeds. Dairy Fiber-fortified yogurt. Beverages Fiber-fortified soy milk. Fiber-fortified orange juice. Other foods Fiber bars. The items listed above may not be a complete list of recommended foods and beverages. Contact a dietitian for more options. What foods are not recommended? Fruits Fruit juice. Cooked, strained fruit. Vegetables Fried potatoes. Canned vegetables. Well-cooked vegetables. Grains White bread. Pasta made with refined flour. White rice. Meats and other proteins Fatty cuts of meat. Fried chicken or fried fish. Dairy Milk. Yogurt. Cream cheese. Sour cream. Fats and oils [place]. Beverages Soft drinks. Other foods Cakes and pastries. The items listed above may not be a complete list of foods and beverages to avoid. Contact a dietitian for more information. Summary Fiber is a type of carbohydrate. It is found in fruits, vegetables, whole grains, and beans. There are many health benefits of eating a high-fiber diet, such as preventing constipation, lowering blood cholesterol, helping with weight loss, and reducing your risk of heart disease, diabetes, and certain cancers. Gradually increase your intake of fiber. Increasing too fast can result in cramping, bloating, and gas. Drink plenty of water while you increase your fiber. The best sources of fiber include whole fruits and vegetables, whole grains, nuts, seeds, and beans. This information is not intended to replace advice given to you by your health care provider. Make sure you discuss any questions you have with your health care provider. Document Released: 04/08/2006 Document Revised: 02/10/2018 Document Reviewed: 02/10/2018 [employer] Patient Education 2020 [employer]. 08/29/2021 15:12:34 Chronic Constipation Chronic Constipation Chronic constipation is a condition in which a person has three or fewer bowel movements a week, for three months or longer. This condition is especially common in older adults. The two main kinds of chronic constipation are secondary constipation and functional constipation. Secondary constipation results from another condition or a treatment. Functional constipation, also called primary or idiopathic constipation, is divided into three types: Normal transit constipation. In this type, movement of stool through the colon (stool transit) occurs normally. Slow transit constipation. In this type, stool moves slowly through the colon. Outlet constipation or pelvic floor dysfunction. In this type, the nerves and muscles that empty the rectum do not work normally. What are the causes? Causes of secondary constipation may include: Failing to drink enough fluid, eat enough food or fiber, or get physically active. . A tear in the anus (anal fissure). Blockage in the bowel (bowel obstruction). Narrowing of the bowel (bowel stricture). Having a long-term medical condition, such as: ?Diabetes. ?Hypothyroidism. ?Multiple sclerosis. ?Parkinson disease. ?Stroke. ?Spinal cord injury. ?Dementia. ?Colon cancer. ?Inflammatory bowel disease (IBD). ?Iron-deficiency anemia. ?Outward collapse of the rectum (rectal prolapse). ?Hemorrhoids. Taking certain medicines, including: ?Narcotics. These are a certain type of prescription pain medicine. ?Antacids. ?Iron supplements. ?Water pills (diuretics). ?Certain blood pressure medicines. ?Anti-seizure medicines. ?Antidepressants. ?Medicines for Parkinson disease. The cause of functional constipation is not known, but some conditions are associated with it. These conditions include: Stress. Problems in the nerves and muscles that control stool transit. Weak or impaired pelvic floor muscles. What increases the risk? You may be at higher risk for chronic constipation if you: Are older than age 70. Are female. Live in a long-term care facility. Do not get much exercise or physical activity (have a sedentary lifestyle). Do not drink enough fluids. Do not eat enough food, especially fiber. Have a long-term disease. Have a mental health disorder or eating disorder. Take many medicines. What are the signs or symptoms? The main symptom of chronic constipation is having three or fewer bowel movements a week for several weeks. Other signs and symptoms may vary from person to person. These include: Pushing hard (straining) to pass stool. Painful bowel movements. Having hard or lumpy stools. Having lower belly discomfort, such as cramps or bloating. Being unable to have a bowel movement when you feel the urge. Feeling like you still need to pass stool after a bowel movement. Feeling that you have something in your rectum that is blocking or preventing bowel movements. Seeing blood on the toilet paper or in your stool. Worsening confusion (in older adults). How is this diagnosed? This condition may be diagnosed based on: Symptoms and medical history. You will be asked about your symptoms, lifestyle, diet, and any medicines that you are taking. Physical exam. ?Your belly (abdomen) will be examined. ?A digital rectal exam may be done. For this exam, a health care provider places a lubricated, gloved finger into the rectum. Other tests to check for any underlying causes of your constipation. These may be ordered if you have bleeding in your rectum, weight loss, or a family history of colon cancer. In these cases, you may have: ?Imaging studies of the colon. These may include X-ray, ultrasound, or CT scan. ?Blood tests. ?A procedure to examine the inside of your colon (colonoscopy). ?More specialized tests to check: ?Whether your anal sphincter works well. This is a ring-shaped muscle that controls the closing of the anus. ?How well food moves through your colon. ?Tests to measure the nerve signal in your pelvic floor muscles (electromyography). How is this treated? Treatment for chronic constipation depends on the cause. Most often, treatment starts with: Being more active and getting regular exercise. Drinking more fluids. Adding fiber to your diet. Sources of fiber include fruits, vegetables, whole grains, and fiber supplements. Using medicines such as stool softeners or medicines that increase contractions in your digestive system (pro-motility agents). Training your pelvic muscles with biofeedback. Surgery, if there is obstruction. Treatment for secondary chronic constipation depends on the underlying condition. You may need to: Stop or change some medicines if they cause constipation. Use a fiber supplement (bulk laxative) or stool softener. Use prescription laxative. This works by absorbing water into your colon (osmotic laxative). You may also need to see a specialist who treats conditions of the digestive system (pulper tender). Follow these instructions at home: Take [id number] and prescription medicines only as told by your health care provider. If you are taking a laxative, take it as told by your health care provider. Eat a balanced diet that includes enough fiber. Ask your health care provider to recommend a diet that is right for you. Drink clear fluids, especially water. Avoid drinking alcohol, caffeine, and soda. Drink enough fluid to keep your urine pale yellow. Get some physical activity every day. Ask your health care provider what physical activities are safe for you. Get colon cancer screenings as told by your health care provider. Keep all follow-up visits as told by your health care provider. This is important. Contact a health care provider if: You are having three or fewer bowel movements a week. Your stools are hard or lumpy. You notice blood on the toilet paper or in your stool after you have a bowel movement. You have unexplained weight loss. You have rectum (rectal) pain. You have stool leakage. You experience nausea or vomiting. Get help right away if: You have rectal bleeding or you pass blood clots. You have severe rectal pain. You have body tissue that pushes out (protrudes) from your anus. You have severe pain or bloating (distension) in your abdomen. You have vomiting that you cannot control. Summary Chronic constipation is a condition in which a person has three or fewer bowel movements a week, for three months or longer. You may have a higher risk for this condition if you are an older adult, or if you do not drink enough water or get enough physical activity (are sedentary). Treatment for this condition depends on the cause. Most treatments for chronic constipation includeadding fiber to your diet, drinking more fluids, and getting more physical activity. You may also need to treat any underlying medical conditions or stop or change certain medicines if they cause constipation. If lifestyle changes do not relieve constipation, your health care provider may recommend taking a laxative. This information is not intended to replace advice given to you by your health care provider. Make sure you discuss any questions you have with your health care provider. Document Released: 11/05/2017 Document Revised: 03/21/2018 Document Reviewed: 12/24/2017 [employer] Patient Education 2020 [employer]. Follow Up Care 08/17/2021 10:11:57 With:Marielena Archer CNP Address: When:6 months [facility] Evaluation + Plan note No data available for this section [facility] Evaluation + Plan note Future Appointments Appointment Date:02/26/2022 02:00:00 PM Scheduled Provider:Marielena Archer CNP [place] Type[facility] Follow Up [facility] Evaluation + Plan note Future Appointments Appointment Date:08/27/2022 10:40:00 AM Scheduled Provider:Marielena Archer CNP [place] App[facility]ment Type:[facility] Follow Up [facility] Evaluation + Plan note Future Appointments Appointment Date:12/31/2022 10:20:00 AM Scheduled Provider:Marielena Archer CNP [place] App[facility]ment Type:BAD Follow Up [facility] Evaluation + Plan note Future Appointments Appointment Date:05/18/2024 09:00:00 AM Scheduled Provider:Marielena Archer CNP Location:[facility] Appointment Type:BAD Follow Up [facility] Evaluation note* Diagnosis Well woman exam with routine gynecological exam Routine gynecological examination documented in this encounter [facility] N[facility]ative - Reported* Type Description Date Medical History ASTHMA Medical History BIPOLAR/DEPRESSION Medical History LUMBAR DDD Medical History GERD Medical History VERTIGO Medical History migraine headaches Medical History lactose intolerance Surgical History TUBAL LIGATION 03/2017 Surgical History LEEP PROCEDURE FOR SURGICAL CAN CER 03/2016 Surgical History ABDOMINAL HERNIA REPAIR 2013 Surgical History tonsillectomy 09/2018 Surgical History hysterectomy Hospitalization History SEE ABOVE [facility] Other [facility] Discharge instructions No data available for this section [facility] Progress note No data available for this section [facility] Summary Purpose Family History No Family History Records FoundNo Family History Records FoundNo Family History Records Found No data available for this section No Family History Records FoundNo Family History Records Found Advance Directives No Advanced Directives Records FoundNo Advanced Directives Records FoundNo Advanced Directives Records FoundNo Advanced Directives Records FoundNo Advanced Directives Records Found Additional Source Comments INFORMATION SOURCE (unrecogn ized section and content) DATE CREATED AUTHOR 06/19/2019 [facility] DATE CREATED AUTHOR AUTHOR'S ORGANIZ ATION 04/18/2022 [facility] DATE CREATED AUTHOR AUTHOR'S ORGANIZ ATION 04/19/2023 [facility] EPIC DATE CREATED AUTHOR AUTHOR'S ORGANIZ ATION 09/21/2023 [facility] EPIC DATE CREATED AUTHOR AUTHOR'S ORGANIZ ATION 02/03/2024 Karimi Lele [facility] Patient Care team informatio n (unrecognized section and content) 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 This clinical summary was aggregated from multiple sources. Caution should be exercised in using it in the provision of clinical care. This summary normalizes information from multiple sources, and as a consequence, information in this document may materially change the coding, format and clinical context of patient data. In addition, data may be omitted in some cases. CLINICAL DECISIONS SHOULD BE BASED ON THE PRIMARY CLINICAL RECORDS. [employer] provides no warranty or guarantee of the accuracy or completeness of information in this document.
[2024-05-11 01:06] LABS: Age Gdln ACOG Testing Note (.); HPV Aptima Negative (Negative); IGP, Aptima HPV, rfx 16/18,45 Note (.)
== END 2024-05-05 19:31 | disposition home or self-care (01) ==
LOC: LAB 19:30
PROVIDERS: Visit Provider Obstetrics & Gynecology
DX: Z01.419 Encounter for gynecological examination (general) (routine) without abnormal findings (principal)
CPT/HCPCS: 87624; 88175